=== PATIENT | male | born 1950 | race Caucasian/White ===

== ENCOUNTER 2018-03-17 09:44 | Outpatient (CLI) | payer MEDICARE, BC ==
[~2018-03-17] VITALS: Ht 200.7 cm; Wt 91.8 kg
--- NOTE | ~2018-03-17 | HEMODYNAMI ---
PATIENT:MORGAN BARRIOS MEDICAL RECORD: [id number] : 46 LOCATION:[facility] ADMISSION DATE: 03/17/18 Generatedon:03/17/201812:38 Patient name: MORGAN BARRIOS Patient #: [id number] SSN: : 1950 Date of study: 03/17/2018 Page: Of Hemodynamic Procedure Report Patient Data Patient Demographics Procedure consent was obtained First Name: MORGAN Gender: Male Last Name: SOPHIE Suffix: Jr Jeanette Initial: T : 1950 Patient #: [id number] Age: 68 year(s) Race: Additional ID: [id number] Contact details Address: [place] [address] State: [place] City: [place] Zip code: [address] Past Medical History History of disease Date Diagnosis Comments CAD Allergies: No known allergies Admission Admission Data Admission Date: 03/17/2018 Admission Time: 9:44 Admit Source: Other Procedure Procedure Types Cath Procedure Diagnostic Procedure [facility] w/Coronaries Cardioversion External PCI Procedure Coronary Stent Coronary Stent Initial Procedure Description Procedure Date Procedure Date: 03/17/2018 Procedure Start Time: 12:17 Procedure End Time: 12:36 Procedure Staff Name Function Fran Ha MD Performing Physician Osmin Barker RT Monitor Serena Puga RT Scrub Rommel Simmons MD Additional personnel Giovanna Reyes RN Boat Patcher Plastic Procedure Data Cath Procedure Fluoroscopy Diagnostic fluoroscopy Total fluoroscopy Time: 2.5 time: 2.5 min min Diagnostic fluoroscopy Total fluoroscopy dose: 583 dose: 583 mGy mGy Contrast Material Contrast Material Type Amount (ml) Isovue 300 83 Entry Location Entry Primary Successful Side Size Upsize Upsize Entry Closure Succes sful Closure Location (Fr) 1 (Fr) 2 (Fr) Remarks Device Remarks Femoral Right 5 Fr 6 Fr Exoseal artery Short Estimated blood loss: 10 ml Diagnostic catheters Device Type Used For End Catheter Placement MULTIPACK Pigtail 5 Fr Procedure catheter MULTIPACK JL 4.0 5Fr Procedure catheter MULTIPACK 3DRC 5Fr Procedure catheter DIAGNOSTIC AR 2 MOD 5 Fr Procedure catheter ([id number]) Procedure Complications No complications Procedure Medications Medication Administration Route Dosage Oxygen etCO2 Nasal cannula 2 l/min Lidocaine 2% added to field 20 Heparin Flush Bag added to field 2 bags (1000units/500ml NS) 0.9% NaCl I.V. 100 ml/hr Refer to Anesthesia Notes for Sedation Medications Heparin Bolus I.V. 4000 units Integrilin (Bolus I.V. 8.5 ml 2mg/ml) Plavix P.O. 600 mg Hemodynamics Rest Heart Rate: 85 (bpm) Snapshots Pre Cath Intra NCS Post Cath Vital Signs Time Heart Resp SPO2 etCO2 NIBP (mmHg) Rhythm Pain Sedation Rate (ipm) (%) (mmHg) Status Level (bpm) 11:48:17 77 27 100 19.2 131/98(117) NSR 0 (11) 10(A) , No pain 11:52:53 71 17 98 15.7 124/92(107) NSR 0 (11) 10(A) , No pain 11:57:28 86 18 100 19.4 125/89(112) NSR 0 (11) 10(A) , No pain 12:02:04 81 17 99 24.7 115/87(99) NSR 0 (11) 9(A) , No pain 12:06:39 70 14 100 25.4 118/80(98) NSR 0 (11) 9(A) , No pain 12:11:13 77 16 100 23.2 128/84(102) NSR 0 (11) 9(A) , No pain 12:15:50 92 12 95 14.2 102/78(95) NSR 0 (11) 9(A) , No pain 12:21:03 39 12 99 23.2 103/56(80) NSR 0 (11) 9(A) , No pain 12:25:42 38 14 98 15.7 86/47(65) NSR 0 (11) 9(A) , No pain 12:30:41 38 14 98 0 Measuring NSR 0 (11) 9(A) , No pain 12:31:03 38 12 98 0 81/47(65) NSR 0 (11) 9(A) , No pain 12:31:56 38 13 98 0 81/42(62) NSR 0 (11) 10(A) , No pain 12:36:37 14.9 No Cuff NSR 0 (11) 10(A) , No pain Medications Time Medication Route Dose Verified Delivered Reason Notes Effectiveness by by 11:55:22 Oxygen etCO2 2 Fran Fran for local Nasal l/min Leland Ha MD anesthetic cannula 11:55:49 Lidocaine 2% added 20ml Fran Peters for local to vial Leland Ha MD anesthetic field 11:55:56 Heparin Flush added 2 Fran Peters used for Bag to bags Leland Ha MD procedure (1000units/500ml field NS) 11:56:04 0.9% NaCl I.V. 100 Fran Heredia Per physician ml/hr Leland Reyes RN 12:11:45 Refer to Fran Heredia Anesthesia Notes Leland Reyes RN for Sedation Medications 12:23:12 Heparin Bolus I.V. 4000 Fran Heredia for verif ied units Leland Reyes RN anticoagulation with dr ha 12:24:56 Integrilin I.V. 8.5 Fran Heredia for wased (Bolus 2mg/ml) ml Leland Reyes RN antiplatelet 1.5ml of therapy vial 12:30:27 Plavix P.O. 600 Fran Heredia for mg Leland Reyes RN antiplatelet therapy Procedure Log Time Note 11:15:03 Serena Counts RT(R) sent for patient. Start room use. 11:36:21 Informed consent obtained and on chart 11:36:24 Admit Source: Other 11:38:01 Diagnostic Cath status Elective 11:38:09 Time tracking: Regular hours (M-F 7:00 - 5:00) 11:38:12 Plan of Care:Hemodynamics will remain stable., Cardiac rhythm will remain stable., Comfort level will be maintained., Respiratory function will remain adequate., Patient/ family verbilizes understanding of procedure., Procedure tolerated without complication., Recovers from procedure without complications.. 11:38:16 Patient received from Pre/Post Procedure Room to CCL 1 Alert and oriented. Tansferred to table in Supine position. 11:38:17 Warm blankets applied, and shirley hugger turned on for patient comfort. 11:38:17 Correct patient and procedure confirmed by team. 11:38:18 ECG and BP/O2 sat monitors applied to patient. 11:38:40 Rommel Simmons MD present and monitoring patient for TIVA. 11:47:28 Vital chart was started 11:55:22 Oxygen 2 l/min etCO2 Nasal cannula was administered by Fran Ha MD; for local anesthetic; 11:55:27 Baseline sample Acquired. 11:55:49 Lidocaine 2% 20ml vial added to field was administered by Fran Ha MD; for local anesthetic; 11:55:56 Heparin Flush Bag (1000units/500ml NS) 2 bags added to field was administered by Fran Ha MD; used for procedure; 11:56:03 Rhythm: atrial flutter 11:56:04 0.9% NaCl 100 ml/hr I.V. was administered by Giovanna Reyes RN; Per physician; 11:56:04 Full Disclosure recording started 11:56:20 H&P Date Dictated: 03/12/2018 Within 30 days and on chart., H&P Addendum completed by physician on day of procedure. (MUST COMPLETE FOR ALL OUTPATIENTS). 11:56:23 Pre-procedure instructions explained to patient. 11:56:23 Pre-op teaching completed and patient verbalized understanding. 11:56:24 Family in waiting room. 11:56:25 Patient NPO since Midnight. 11:56:34 Patient allergic to No known allergies 11:56:36 Is the patient allergic to Iodine/contrast media? No. 11:56:37 Is patient on blood thinner?Yes 11:56:41 ACC The patient was administered the following blood thiners within the last 24 hours: Xarelto 11:57:21 Physician arrived 11:57:21 --------ALL STOP TIME OUT------ 11:57:22 Final Timeout: patient, procedure, and site verified with staff and physician. All members of the team are in agreement. 11:57:24 Right groin site verified by team. 11:57:27 Physical assessment completed. ASA score P 3 - A patient with severe systemic disease as per Fran Ha MD. 11:57:30 Sedation plan: TIVA Medication:Propofol 11:57:34 Patient diabetic? No. 11:57:36 Previous problem with sedation/anesthesia? No ? 11:57:38 Snore? Yes 11:57:39 Sleep apnea? No 11:57:40 Deviated septum? No 11:57:40 Opens mouth fully? Yes 11:57:41 Sticks out tongue? Yes 11:57:43 Airway obstruction? No ? 11:57:46 Dentures? No ? 11:57:49 Pre procedure: right dorsailis pedis pulse 2+ Normal; easily identifiable; not easily obliterated 11:57:50 Patient pain scale 0/10 ?. 11:58:03 IV patent on arrival in left forearm with 0.9% NaCl at [facility]. 11:58:11 Lab results completed and on chart. 11:58:55 Right groin area was prepped with chlora-prep and draped in sterile fashion 11:58:56 Alarms reviewed by R. N. 11:58:57 Sharps counted by scrub and verified by R.N. 12:07:52 Zero performed for pressure channel P1 12:08:31 Baseline sample Acquired. 12:11:45 Refer to Anesthesia Notes for Sedation Medications was administered by Giovanna Reyes RN; ; 12:13:33 Quick Combo opened to sterile field. 12:13:34 Procedure started. 12:13:37 Quick combo pads placed on patients chest and back. 12:16:11 Defibrillator synced and charged to 275 Joules. 12:16:16 Shock delivered. 12:16:23 Patient cardioverted to sinus bradycardia. 12:17:05 Local anesthetic to right femoral artery with Lidocaine 2% by Fran aH MD.INITIAL ACCESS ONLY 12:17:15 A 5 Fr sheath was inserted into the Right Femoral artery 12:17:51 Use device set Femoral Dx 12:17:52 ACIST Syringe (30035) opened to sterile field. 12:17:52 Bag Decanter () opened to sterile field. 12:17:53 Medline Cath Pack ([id number]) opened to sterile field. 12:17:54 ACIST Hand Control (71032) opened to sterile field. 12:17:54 ACIST Manifold (42732) opened to sterile field. 12:17:55 DIAGNOSTIC Multipack 5Fr catheter set (ZH8180) opened to sterile field. 12:17:55 Tegaderm 4 x 4 (1626W) opened to sterile field. 12:17:58 SHEATH Prelude 5Fr 0.035 (NQP-0G-15-035) opened to sterile field. 12:17:59 DIAGNOSTIC WIRE .035 260cm J wire (206092) opened to sterile field. 12:18:08 A MULTIPACK Pigtail 5 Fr catheter was advanced over the wire and used for Procedure. 12:18:12 LV angiography performed. 12:18:13 LV gram done using POLLARD 12:18:15 Injector settings: Ml/sec: 10, Volume: 20, 12:18:20 EF : 35 % 12:18:24 Catheter exchanged over wire. 12:18:29 A MULTIPACK JL 4.0 5Fr catheter was advanced over the wire and used for Procedure. 12:18:48 LCA angiography performed. 12:19:46 Catheter exchanged over wire. 12:19:53 A MULTIPACK 3DRC 5Fr catheter was advanced over the wire and used for Procedure. 12:20:32 PATTERSON to LAD angiography performed. 12:20:48 RCA angiography performed. 12:21:18 Catheter exchanged over wire. 12:21:28 A DIAGNOSTIC AR 2 MOD 5 Fr catheter ([id number]) was advanced over the wire and used for Procedure. 12:21:51 CHOICE PT Extra Support 182cm wire ([id number]) opened to sterile field. 12:21:52 INFLATOR Merit BasixCompak (MH8858) opened to sterile field. 12:21:53 SHEATH Prelude 6Fr 0.035 (ZYV-7G-95-035) opened to sterile field. 12:22:22 SVG to Diag angiography performed. 12:22:24 Catheter removed. 12:22:31 Sheath upsized to a 6 Fr Short. 12:23:12 Heparin Bolus 4000 units I.V. was administered by Giovanna Reyes RN; for anticoagulation; verified with dr ha 12:23:35 GUIDE 6FR XBLAD 4.0 SH catheter ([id number]) opened to sterile field. 12:23:46 6 Fr xblad 4 sh guide catheter was inserted over the wire 12:24:56 Integrilin (Bolus 2mg/ml) 8.5 ml I.V. was administered by Giovanna Reyes RN; for antiplatelet therapy; wased 1.5ml of vial 12:24:59 choice pt es wire advanced. 12:25:45 Place stent Inflation Number: 1 A INTEGRITY RX 3.0 x 18 stent ([id number]) was prepped and advanced across the Prox CX. The stent was deployed at 17 LEROY for 0:10 (min:sec). 12::57 Stent catheter was removed intact over wire. 12::57 Wire removed. 12::59 Guide catheter removed. 12:26:04 EXOSEAL 6Fr (EX600) opened to sterile field. 12:26:11 Sheath removed intact; hemostasis achieved with Exoseal to the Right Femoral artery. 12::13 Procedure ended.(Physican Out) 12:: Fluoroscopy time 02.50 minutes. 12:: Flurop Dose total: 583 12:: Fluoroscopy dose: 583 mGy 12:: Contrast amount:Isovue 300 83ml. 12:: Sharps counted by scrub and verified by R.N. 12:: Plavix 600 mg P.O. was administered by Giovanna Reyes RN; for antiplatelet therapy; 12:34:26 Insertion/operative site no bleeding no hematoma. 12:34:28 Post-op/insertion site Right Femoral artery dressed using a 4 x 4 and Tegaderm. 12:34:31 Post right femoral artery:stable, soft, clean and dry 12:34:33 Post Procedure Pulses reassessed and unchanged 12:34:35 Post-procedure physical assessment completed. ASA score P 3 - A patient with severe systemic disease as per Fran Ha MD. 12:34:51 Post procedure rhythm: sinus bradycardia 12:35:06 Estimated blood loss: 10 ml 12:35:07 Post procedure instruction explained to patient.Patient verbalizes understanding. 12:35:08 Patient needs reinforcement of post procedure teaching. 12:35:17 Procedure type changed to Cath procedure, Diagnostic procedure, LHC, LHC w/Coronaries, Cardioversion External, PCI procedure, Coronary Stent, Coronary Stent Initial 12:36:27 Procedure and supply charges have been captured, reviewed, submitted and are correct. 12:36:29 Procedure Complication : No complications 12:36:32 Vital chart was stopped 12:36:33 See physician's report for complete and final results. 12:36:35 Report given to Pre/Post Procedure Room. 12:36:38 Patient transfered to Pre/Post Procedure Room with Stretcher. 12:36:42 Procedure ended. 12:36:42 Full Disclosure recording stopped 12:36:46 End room use (Document Last) Intervention Summary Intervention Notes Time ActionType Lesion and Equipment Action# Pressure Duration Attributes Used 12:25:45 Place stent Prox CX INTEGRITY RX 1 17 00:10 3.0 x 18 stent ([id number]) Device Usage Item Name Manufacture Quantity Catalog Number Hospital Part Current Minimal Lot# / Charge Number Stock Stock Serial# Code Quick Combo Edge Systems 1 [id number] 921454 839785 [id number] 5 ACIST Syringe Acist 1 23395 228259 008024 668546 20 (42357) Medical Systems Inc Bag Decanter Microtek 1 2001S 244871 34013 168245 5 (2001S) Medical Inc. Medline Cath Cardinal 1 [id number] 712740 04764 564914 5 Pack Health ([id number]) ACIST Hand Acist 1 26627 389663 325894 972291 5 Control (71189) Medical Systems Inc ACIST Manifold Acist 1 32210 569919 465845 443778 5 (62291) Medical Systems Inc DIAGNOSTIC Cardinal 1 BY8191 514065 55468 082864 30 Multipack 5Fr Health catheter set (AJ0595) Tegaderm 4 x 4 3M 1 1626W 503325 164531 803056 5 (1626W) SHEATH Prelude Merit 1 CRO-3P-61-035 552866 442183 172708 5 5Fr 0.035 Medical (DWQ-0R-72-035) DIAGNOSTIC WIRE [facility] Leonardo 1 277408 388110 854516 391159 30 .035 260cm J wire (144792) MULTIPACK Cardinal 1 707077 5 Pigtail 5 Fr Health catheter MULTIPACK JL Cardinal 1 559419 5 4.0 5Fr Health catheter MULTIPACK 3DRC Cardinal 1 460468 5 5Fr catheter Health DIAGNOSTIC AR 2 Cardinal 1 [id number] 000673 058431 912534 20 MOD 5 Fr Health catheter (199538W) CHOICE PT Extra Turin 1 [id number] 162680 414129 684874 5 Support 182cm Scientific wire ([id number]) INFLATOR Merit Merit 1 DG9397 562937 833045 923733 15 [facility] Medical (BG5640) SHEATH Prelude Merit 1 UMN-5U-30-35 870965 7730294 732146 5 6Fr 0.035 Medical (IPV-6Q-92-035) GUIDE 6FR XBLAD Cardinal 1 [id number] 370504 2588 679821 3 4.0 catheter Health (91614859) INTEGRITY RX Medtronic 1 [id number] 396592 367008 776629 5 [id number] 3.0 x 18 stent ([id number]) EXOSEAL 6Fr Cardinal 1 EX600 461944 652902 867507 10 (EX600) Health Signature Audit [place] Stage Time Signature Unsigned Intra-Procedure 03/17/2018 Osmin Barker 12:38:03 PM RT(R) Signatures Monitor : Osmin Barker RT Signature : Date : Time : [address] [address]
--- NOTE | ~2018-03-17 | OP ---
PATIENT NAME: MORGAN BARRIOS MEDICAL RECORD: [id number] :46 LOCATION:D.CAT ADMISSION DATE: SURGEON: JOHANNE STEWARD MD DATE OF OPERATION: 03/17/2018 PROCEDURES: 1. DC cardioversion. 2. PTCA stent of left circumflex. 3. Left heart catheterization. 4. Left ventriculogram. 5. Selective coronary angiography. 6. Vein graft angiography. 7. PATTERSON angiography. INDICATION: Atrial fibrillation, angina and coronary artery disease. PROCEDURE PERFORMED: After informed consent was obtained and after a detailed description of risks, benefits as well as alternative therapies, the patient elected to proceed with angiogram and angioplasty. The right femoral area was prepped and draped in normal sterile fashion. Right femoral artery was cannulated via modified Seldinger technique with placement of 6-Serbian sheath. All catheters exchanged through this sheath. FINDINGS: The left ventriculogram was performed in standard 30-degree POLLARD view reveals global hypokinesis throughout all segments. Overall ejection fraction 35%. SELECTIVE CORONARY ANGIOGRAPHY: 1. Left main is with no significant angiographic disease. 2. Left anterior descending is totally occluded. 3. PATTERSON to the LAD is widely patent. Distal LAD is widely patent. 4. Vein graft to the LAD diagonal is patent. Previously placed stent is widely patent. 5. The right coronary artery is totally occluded. This is nongrafted. 6. Left circumflex has previously placed stents. There is 80% and 90% in-stent restenosis. IN PROCESS INSPECTOR STENT OF THE LEFT CIRCUMFLEX: The stent used was a 3.0 x 18 mm Integrity. Result was 0% residual stenosis. OVERALL IMPRESSION: Successful percutaneous transluminal coronary angioplasty stent of the left circumflex going from 80% to 90% in-stent restenosis to 0% residual stenosis. DC cardioversion was performed. Continuous O2 saturation, heart rate, blood pressure monitoring all undertaken, all of which remained stable. IV conscious sedation was per anesthesia. The patient received 1 shock at 275 joules restoring sinus rhythm. OVERALL IMPRESSION: Successful DC cardioversion from atrial fibrillation to sinus rhythm. TRANSINT:[id number] Voice Confirmation ID: [id number] DOCUMENT ID: [id number] OPERATIVE REPORT [id number] MORGAN BARRIOS JOHANNE STEWARD MD at 7992 CC: [id number] DICTATION DATE: 03/17/18 1233 CHIEF ELECTRICIAN: 03/17/18 1248 DEP CLI 03/17/18 [facility] [address] [facility] [address]
[~2018-03-17 09:44] MED LIST: AMITRIPTYLINE H50 MG PO; BAYER CHEWABLE81 MG PO; BETAPACE 120 M120 MG PO; BETAPACE 80 MG80 MG PO; FISH OIL 1,0001 CA1 PO; FISH OIL 1,2001 CAP PO; HYDROCHLOROTHIA25 MG PO; HYDROCODONE-APA1 TAB PO; METOPROLOL TAR100 M1 PO; METOPROLOL TART50 MG PO; PLAVIX75 MG PO; PRAVACHOL20 MG PO; RYTHMOL SR225 MG PO; RYTHMOL225 MG PO; SEROQUEL25 MG PO; STOOL SOFTENER250 MG PO; SYNTHROID112 MCG PO; UROCIT-K10 MEQ PO; XARELTO20 MG PO; ZOLOFT100 MG PO
[2018-03-17] MEDS ORDERED: METOPROLOL TART50 MG PO (10:01)
[2018-03-17] MEDS ORDERED: COZAAR50 MG (10:03)
[2018-03-17] MEDS ORDERED: K-TAB10 MEQ (10:05)
[2018-03-17 10:13] VITALS: BP 120/87; Ht 200.7 cm; Wt 91.8 kg
[2018-03-17 10:26] LABS: BASOPHILS 0.9 % (0-2); EOSINOPHILS 3.2 % (0-7); HEMATOCRIT 39.2 % (42.0-54.0); IMMATURE GRANULOCYTES 0.1 % (0-5); LYMPHOCYTES 31.5 % (15-50); MCH 29.8 pg (26.0-34.0); MCHC 33.2 g/dL (31.0-37.0); MCV 89.9 fL (80.0-100.0); MEAN PLATELET VOLUME 9.7 fL (7.4-10.4); MONOCYTES 6.6 % (2-11); NEUTROPHILS 57.7 % (40-80); RBC 4.36 10x6/uL (4.20-6.10)
[2018-03-17 10:28] LABS: PLATELET COUNT 265 10x3/uL (130-400)
[2018-03-17 10:35] LABS: ANION GAP 9.5 mmol/L (8-16); CALCIUM 8.5 mg/dL (8.5-10.1); CREATININE - SERUM 1.5 mg/dL (0.6-1.3); POTASSIUM - SERUM 4.5 mmol/L (3.5-5.1)
[2018-03-17 10:36] LABS: INR 1.09 (0.85-1.17); PROTIME 13.7 SECONDS (11.6-15.0)
[2018-03-17] MEDS ORDERED: PACERONE200 MG PO (13:11)
[2018-03-17] MEDS ORDERED: PACERONE400 MG PO (13:11)
[2018-03-17] MEDS ORDERED: PLAVIX75 MG (13:16)
== END 2018-03-17 16:33 ==
LOC: D.CATH 09:44
PROVIDERS: Internal Medicine Interventional Cardiology
DX: I48.1 Persistent atrial fibrillation (principal); I25.110 Atherosclerotic heart disease of native coronary artery with unstable angina pectoris

== ENCOUNTER → 2018-07-23 15:53 | Outpatient (CLI) | payer MEDICARE, BC ==
[2018-03-17 10:13] VITALS: BMI 22.8
[~2018-07-23 15:53] MED LIST changes: +COZAAR50 MG; +K-TAB10 MEQ; +PACERONE200 MG PO; +PACERONE400 MG PO; +PLAVIX75 MG
[2018-07-23 17:21] LABS: CREATININE - URINE 141.7 mg/dL (30-125); PRO/CRE RATIO URINE 0.5 mg/g; PROTEIN - URINE 65.2 mg/dL (0.0-11.9)
[2018-07-23 17:42] LABS: ANION GAP 12.6 mmol/L (8-16); CALCIUM 9.3 mg/dL (8.5-10.1); CARBON DIOXIDE 26.9 mmol/L (21.0-32.0); CREATININE - SERUM 1.3 mg/dL (0.6-1.3); POTASSIUM - SERUM 4.5 mmol/L (3.5-5.1)
[2018-07-23 17:43] LABS: APPEARANCE HAZY (CLEAR); COLOR YELLOW (YELLOW)
[2018-07-23 17:45] LABS: BILIRUBIN NEGATIVE (NEGATIVE); GLUCOSE NEGATIVE (NEGATIVE); KETONE NEGATIVE (NEGATIVE); NITRITE NEGATIVE (NEGATIVE); PROTEIN NEGATIVE (NEGATIVE); UROBILINOGEN NORMAL (NORMAL)
[2018-07-23 17:47] LABS: BACTERIA MODERATE /hpf (NONE SEEN); RED CELLS - URINE >50 /hpf (0-5)
== END | disposition home or self-care (01) ==
LOC: D.US 15:53
PROVIDERS: Internal Medicine Nephrology
DX: I10 Essential (primary) hypertension (principal); R80.0 Isolated proteinuria; N20.0 Calculus of kidney; R31.9 Hematuria, unspecified; Z68.23 Body mass index [BMI] 23.0-23.9, adult

== ENCOUNTER 2018-12-02 09:44 | Inpatient (IN) | payer MEDICARE, BC ==
[~2018-12-02] VITALS: Ht 200.7 cm; Wt 92.0 kg
[2018-12-02] VITALS (14 sets, daily range): BP systolic 80–145; BP diastolic 43–76; BMI 23.7
--- NOTE | ~2018-12-02 | OP ---
PATIENT NAME: MORGAN BARRIOS MEDICAL RECORD: [id number] :46 [facility] ADMISSION DATE:12/02/18 SURGEON: ROCCO KNIGHT MD DATE OF OPERATION: 12/03/2018 SURGEON: Rocco Knight MD ANESTHESIA: General, Rommel Simmons MD OPERATION PERFORMED: Insertion of dual chamber pacing system. PREOPERATIVE DIAGNOSES: Sick sinus syndrome, profound bradycardia. POSTOPERATIVE DIAGNOSES: Sick sinus syndrome, profound bradycardia. INDICATION FOR OPERATION: Profound bradycardia. FINDINGS OF THE OPERATION: Pacemaker, Medtronic, model #A2DR01, serial #[id number]. Atrial lead; Medtronic model #4574-43, serial #[id number]. Ventricular lead; Medtronic, model #4074-58, serial #[id number]. ESTIMATED BLOOD LOSS: Less than 3 cc. DESCRIPTION OF PROCEDURE: After informed consent, adequate preoperative medication, and evaluation, the patient was brought to the operating room and placed on the table in supine position. After induction of general anesthesia and application of appropriate monitoring devices, the left chest was prepped and draped in sterile field utilizing Betadine scrub, alcohol, and Betadine solution. Betadine-impregnated drape was also used. Lidocaine 1% was infiltrated in the left subclavicular space. Incision was made and dissection was carried down to the fascia. Hemostasis was maintained with electrocautery. Pacemaker pocket was formed. Subclavian vein was cannulated with introducers and leads were placed in the heart. The leads were felt to be in good position and secured. Leads were then connected to the pulse generator and pacemaker was placed in the pocket. Pacemaker was fired, captured, and sensed appropriately. Pocket was irrigated. Instrument count and sponge count were correct times 2. Pocket was closed in layers utilizing 3-0 Vicryl on deep subcutaneous tissue and 5-0 subcuticular Monocryl on the skin. Sterile dressing was applied. The right temporary pacing wire was then removed under fluoroscopic guidance and pressure held. The patient tolerated the procedure well and was transferred to CV ICU in satisfactory condition. TRANSINT:[id number] Voice Confirmation ID: [id number] DOCUMENT ID: [id number] ROCCO KNIGHT MD CC: [id number] DICTATION DATE: 12/03/18 0937 TOWER SWITCH OPERATOR: 12/03/18 1228 ADM IN [facility] [address] [place] [address]
--- NOTE | ~2018-12-02 | HEMODYNAMI ---
PATIENT:MORGAN BARRIOS MEDICAL RECORD: [id number] : 46 [address] [id number] ADMISSION DATE: 12/02/18 Generatedon:12/02/201813:09 Patient name: MORGAN BARRIOS Patient #: [id number] SSN: : 1950 Date of study: 12/02/2018 Page: Of Hemodynamic Procedure Report Patient Data Patient Demographics Procedure consent was obtained First Name: MORGAN Gender: Male Last Name: SOPHIE Suffix: Jr Reid Initial: T : 1950 Patient #: [id number] Age: 68 year(s) Race: Additional ID: [id number] Contact details Address: [place] [address] State: [place] City: [place] Zip code: [address] Past Medical History History of disease Date Diagnosis Comments CAD Allergies: No known allergies Admission Admission Data Admission Date: 12/02/2018 Admission Time: 9:44 Admit Source: Other Room #: .[facility] Lab Results Lab Result Date: 12/02/2018 Lab Result Time: 11:05 Biochemistry Name Units Result Min Max BUN mg/dl 20 --(----)*- 7 18 Creatinine mg/dl 1.4 --(----)*- 0.6 1.3 CBC Name Units Result Min Max Hematocrit % 42.3 --(*---)-- 42 54 Hemoglobin g/dl 13.9 --(*---)-- 13.5 17.5 Procedure Procedure Types Cath Procedure Diagnostic Procedure LHC LHC w/Coronaries w/Grafts Temporary Pacemaker Cardioversion External Procedure Description Procedure Date Procedure Date: 12/02/2018 Procedure Start Time: 12:23 Procedure End Time: 12:47 Procedure Staff Name Function Giovanna Reyes RN Nurse Jose Duong CRNA Additional personnel Fran Ha MD Performing Physician Osmin Barker RT Monitor Marina Raines RT Hot Metal Charger Procedure Data Cath Procedure Fluoroscopy Diagnostic fluoroscopy Total fluoroscopy Time: 2.8 time: 2.8 min min Diagnostic fluoroscopy Total fluoroscopy dose: 539 dose: 539 mGy mGy Contrast Material Contrast Material Type Amount (ml) Isovue 370 61 Entry Location Entry Primary Successful Side Size Upsize Upsize Entry Closure Succes sful Closure Location (Fr) 1 (Fr) 2 (Fr) Remarks Device Remarks Femoral Right 6 Fr Sheath vein Short sutured in place Femoral Right 5 Fr Exoseal artery Estimated blood loss: 5 ml Diagnostic catheters Device Type Used For End Catheter Placement MULTIPACK Pigtail 5 Fr Procedure catheter MULTIPACK JL 4.0 5Fr Procedure catheter MULTIPACK 3DRC 5Fr Procedure catheter Procedure Complications No complications Procedure Medications Medication Administration Route Dosage Oxygen etCO2 Nasal cannula 2 l/min Lidocaine 2% added to field 20 Heparin Flush Bag added to field 2 bags (1000units/500ml NS) 0.9% NaCl I.V. 100 ml/hr Refer to Anesthesia Notes for Sedation Medications Hemodynamics Rest HGB: 13.9 (g/dl) Heart Rate: 47 (bpm) Snapshots Pre Cath Intra NCS Post Cath Vital Signs Time Heart Resp SPO2 etCO2 NIBP (mmHg) Rhythm Pain Sedation Rate (ipm) (%) (mmHg) Status Level (bpm) 12:08:05 48 16 0 166/86(130) NSR 0 (11) 10(A) , No pain 12:12:31 42 17 0 168/82(132) NSR 0 (11) 10(A) , No pain 12:16:57 42 17 99 29.3 168/84(141) NSR 0 (11) 10(A) , No pain 12:21:15 33 17 100 0 143/81(112) NSR 0 (11) 10(A) , No pain 12:24:05 32 16 100 30.1 142/75(92) NSR 0 (11) 10(A) , No pain 12:28:19 69 17 100 30.1 119/78(93) NSR 0 (11) 10(A) , No pain 12:32:29 69 16 100 34.6 120/78(93) NSR 0 (11) 10(A) , No pain 12:36:39 70 16 100 34.6 113/80(89) NSR 0 (11) 10(A) , No pain 12:40:45 70 16 100 35.3 121/83(98) NSR 0 (11) 10(A) , No pain 12:44:53 70 21 100 34.6 134/85(108) NSR 0 (11) 10(A) , No pain Medications Time Medication Route Dose Verified Delivered Reason Notes Effe ctiveness by by 12:06:11 Oxygen etCO2 2 Fran Heredia used for Nasal l/min Leland Reyes RN procedure cannula 12:06:18 Lidocaine 2% added 20ml Fran Heredia used for to vial Leland Reyes RN procedure field 12:06:34 Heparin Flush added 2 Fran Fran used for Bag to bags Leland Ha MD procedure (1000units/500ml field NS) 12:06:44 0.9% NaCl I.V. 100 Fran Heredia Per ml/hr Leland Reyes RN physician 12:21:44 Refer to Fran Heredia Anesthesia Notes Leland Reyes RN for Sedation Medications Procedure Log Time Note 11:45:27 Informed consent obtained and on chart 11:45:31 Admit Source: Other 11:45:54 Time tracking: Regular hours (M-F 7:00 - 5:00) 11:45:58 Plan of Care:Hemodynamics will remain stable., Cardiac rhythm will remain stable., Comfort level will be maintained., Respiratory function will remain adequate., Patient/ family verbilizes understanding of procedure., Procedure tolerated without complication., Recovers from procedure without complications.. 11:55:44 Giovanna Reyes RN sent for patient. Start room use. 11:55:50 Patient received from Pre/Post Procedure Room to CCL 1 Alert and oriented. Tansferred to table in Supine position. 11:55:51 Warm blankets applied, and shirley hugger turned on for patient comfort. 11:55:52 ECG and BP/O2 sat monitors applied to patient. 11:55:52 Correct patient and procedure confirmed by team. 12:00:07 Jose Duong CRNA present and monitoring patient for TIVA. 12:06:11 Oxygen 2 l/min etCO2 Nasal cannula was administered by Giovanna Reyes RN; used for procedure; 12:06:18 Lidocaine 2% 20ml vial added to field was administered by Giovanna Reyes RN; used for procedure; 12:06:34 Heparin Flush Bag (1000units/500ml NS) 2 bags added to field was administered by Fran Ha MD; used for procedure; 12:06:44 0.9% NaCl 100 ml/hr I.V. was administered by Giovanna Reyes RN; Per physician; 12:06:48 Vital chart was started 12:07:37 Baseline sample Acquired. 12:07:42 Rhythm: atrial flutter 12:07:45 Full Disclosure recording started 12:08:04 H&P Date Dictated: 11/04/2018 Within 30 days and on chart., H&P Addendum completed by physician on day of procedure. (MUST COMPLETE FOR ALL OUTPATIENTS). 12:08:27 Pre-procedure instructions explained to patient. 12:08:29 Pre-op teaching completed and patient verbalized understanding. 12:08:32 Family in waiting room. 12:09:01 Patient NPO since Midnight. 12:09:10 Patient diabetic? No. 12:09:13 Is patient on blood thinner?Yes 12:09:18 ACC The patient was administered the following blood thiners within the last 24 hours: Xarelto 12:09:45 LAST DOSE 11/29/2018 12:10:01 Previous problem with sedation/anesthesia? Yes COMBATIVE 12:10:05 Snore? Yes 12:10:06 Sleep apnea? No 12:10:08 Deviated septum? No 12:10:11 Opens mouth fully? Yes 12:10:12 Sticks out tongue? Yes 12:10:15 Quick Combo opened to sterile field. 12:10:15 Airway obstruction? No ? 12:10:22 Dentures? No ? 12:10:48 Pre procedure: right dorsailis pedis pulse 1+ Palpable, but thready & weak; easily obliterated 12:11:30 Patient pain scale 0/10 ?. 12:11:36 IV patent on arrival in left forearm with 0.9% NaCl at [facility]. 12:18:14 Lab Result : Hemoglobin 13.9 g/dl 12:18:14 Lab Result : Hematocrit 42.3 % 12:18:14 Lab Result : BUN 20 mg/dl 12:18:14 Lab Result : Creatinine 1.4 mg/dl 12:18:30 Lab results completed and on chart. 12:18:32 Right groin area was prepped with chlora-prep and draped in sterile fashion 12:18:33 Sharps counted by scrub and verified by R.N. 12:18:33 Alarms reviewed by Bel N. 12:18:36 Use device set Femoral Dx 12:18:37 Bag Decanter (2002S) opened to sterile field. 12:18:37 ACIST Syringe (79369) opened to sterile field. 12:18:41 Medline Cath Pack ([id number]) opened to sterile field. 12:18:45 ACIST Hand Control (04182) opened to sterile field. 12:18:47 ACIST Manifold (47391) opened to sterile field. 12:18:47 DIAGNOSTIC Multipack 5Fr catheter set (TC4935) opened to sterile field. 12:18:48 SHEATH 5FR [place] (HFG810) opened to sterile field. 12:18:49 DIAGNOSTIC WIRE .035 260cm J wire (940562) opened to sterile field. 12:19:10 --------ALL STOP TIME OUT------ 12:19:10 Physician arrived 12:19:11 Final Timeout: patient, procedure, and site verified with staff and physician. All members of the team are in agreement. 12:19:12 Right groin site verified by team. 12:19:14 Maximum allowable Isovue 300 dose 300ml. Physician notified. (300ml for normal creatinines. For patients with creatinine of 1.7 or higher multiply weight(kg) x 5 divided by creatinine.) 12:19:17 Fire Safety Assessment: A--An alcohol-based skin anteseptic being used preoperatively., C--Open oxygen or nitrous oxide is being used., D--An ESU, laser, or fiber-optic light is being used. 12:19:21 Physical assessment completed. ASA score P 3 - A patient with severe systemic disease as per Fran Ha MD. 12:19:24 Sedation plan: IV Moderate Sedation Medication:Propofol 12:19:27 Procedure started. 12:20:51 Quick combo pads placed on patients chest and back. 12:20:53 Defibrillator synced and charged to 175 Joules. 12:20:54 Shock delivered. 12:20:56 Patient cardioverted to sinus bradycardia. 12:21:44 Refer to Anesthesia Notes for Sedation Medications was administered by Giovanna Reyes RN; ; 12:23:11 Local anesthetic to right femoral artery with Lidocaine 2% by Fran Ha MD.INITIAL ACCESS ONLY 12:23:26 A 6 Fr Short sheath was inserted into the Right Femoral vein 12:23:44 5Fr J Tip Temporary Pacing Catheter ([id number]) opened to sterile field. 12:23:52 SHEATH 6FR [place] (LOD363) opened to sterile field. 12:23:55 A 5 Fr sheath was inserted into the Right Femoral artery 12:26:10 Temporary pacer inserted 12::38 Temporary pacer turned on with the following settings: Rate 70, MA 5, Mode: Asynchronous. 12::48 A MULTIPACK Pigtail 5 Fr catheter was advanced over the wire and used for Procedure. 12::54 LV gram done using POLLARD 12::56 Injector settings: Ml/sec: 10, Volume: 20, 12::57 LV hemodynamics recorded. 12:27:04 EF : 35 % 12:27:07 Catheter exchanged over wire. 12:27:14 A MULTIPACK JL 4.0 5Fr catheter was advanced over the wire and used for Procedure. 12:27:41 LCA angiography performed. 12:28:23 Catheter exchanged over wire. 12::57 A MULTIPACK 3DRC 5Fr catheter was advanced over the wire and used for Procedure. 12:29:00 PATTERSON to LAD angiography performed. 12:30:31 SVG to OM angiography performed. 12:30:47 RCA angiography performed. 12:31:36 Catheter removed. 12:32:06 EXOSEAL 5Fr (EX500) opened to sterile field. 12:32:13 Sheath removed intact; hemostasis achieved with Sheath sutured in place to the Right Femoral vein. 12:32:15 Sheath removed intact; hemostasis achieved with Exoseal to the Right Femoral artery. 12:32:15 Procedure ended.(Physican Out) 12:32:49 2-0 Silk 685H opened to sterile field. 12:34:00 Fluoroscopy time 02.80 minutes. 12:34:04 Flurop Dose total: 539 12:34:04 Fluoroscopy dose: 539 mGy 12:34:25 Contrast amount:Isovue 370 61ml. 12:36:27 Insertion/operative site no bleeding no hematoma. 12:36:30 Post-op/insertion site Right Femoral artery dressed using a 4 x 4 and Tegaderm. 12:36:33 Post right femoral artery:stable, soft, clean and dry 12:38:45 Post Procedure Pulses reassessed and unchanged 12:40:01 Post-procedure physical assessment completed. ASA score P 3 - A patient with severe systemic disease as per Fran Ha MD. 12:40:18 Post procedure rhythm: paced 12:40:25 Estimated blood loss: 5 ml 12:40:47 Patient needs reinforcement of post procedure teaching. 12:40:47 Post procedure instruction explained to patient.Patient verbalizes understanding. 12:41:27 Procedure type changed to Cath procedure, Diagnostic procedure, LHC, LHC w/Coronaries w/Grafts, Temporary Pacemaker, Cardioversion External 12:46:46 Procedure and supply charges have been captured, reviewed, submitted and are correct. 12:46:55 Procedure Complication : No complications 12:47:12 Vital chart was stopped 12:47:12 See physician's report for complete and final results. 12:47:13 Report given to CVICU. 12:47:15 Patient transfered to CVICU with Stretcher. 12:47:17 Full Disclosure recording stopped 12:47:17 Procedure ended. 13:06:26 Temp pacer was disloged. Dr. Dexter rerepositioned. 13:06:36 Temporary pacer turned on with the following settings: Rate 30, MA 3, Mode: Demand. 13:08:[address] and dressed with 4X4's and tegaderm. 13:08:53 Report given to CVICU. 13:09:00 End room use (Document Last) Device Usage Item Name Manufacture Quantity Catalog Hospital Part Current Minima l Lot# / Number Charge Number Stock Stock Serial# Code ACIST Acist 1 57858 [id number] 843365 905209 20 Syringe Medical (68919) Systems Inc Bag Microtek 1 2001S 267424 10876 917834 5 Decanter Medical Inc. () Medline Medline 1 [id number] 775718 27172 188836 5 Cath Pack ([id number]) ACIST Hand Acist 1 71927 093757 778631 027740 5 Control Medical (71096) Systems Inc DIAGNOSTIC Cardinal 1 MT9014 719454 62689 826007 30 Multipack Health 5Fr catheter set (LK7312) ACIST Acist 1 80936 385180 429853 862267 5 Manifold Medical (90659) Systems Inc SHEATH 5FR Terumo 1 SAD552 198039 096311 658386 5 [place] (BNW823) DIAGNOSTIC St Leonardo 1 579463 030892 050629 722365 30 WIRE .035 260cm J wire (943215) 5Fr J Tip Puckett 1 [id number] 241846 41446 456455 2 Temporary Lifesciences Pacing Catheter ([id number]) SHEATH 6FR Terumo 1 HJN907 029148 225945 167147 40 [place] (HGT369) MULTIPACK Cardinal 1 463820 5 Pigtail 5 Health Fr catheter MULTIPACK Cardinal 1 181096 5 JL 4.0 5Fr Health catheter MULTIPACK Cardinal 1 903629 5 3DRC 5Fr Health catheter EXOSEAL 5Fr Cardinal 1 EX500 974140 987408 745591 10 (EX500) Health 2-0 Silk Ethicon 1 685H 986454 11385 812630 5 685H Froont 1 55879-650169 607828 230883 007144 5 Signature Audit [place] Stage Time Signature Unsigned Intra-Procedure 12/02/2018 Osmin Barker RT(R) 12:50:47 PM RT(R) 12/02/2018 1:02:59 PM Intra-Procedure 12/02/2018 Osmin Barker 1:09:46 PM RT(R) Signatures Monitor : Osmin Barker RT Signature : Date : Time : [facility] [address] [place] [id number]
[2018-12-02] MEDS ORDERED: TENORMIN50 MG PO (09:56)
[2018-12-02 10:33] LABS: BASOPHILS 0.7 % (0-2); EOSINOPHILS 2.1 % (0-7); HEMATOCRIT 42.3 % (42.0-54.0); HEMOGLOBIN 13.9 g/dL (13.5-17.5); IMMATURE GRANULOCYTES 0.2 % (0-5); LYMPHOCYTES 25.6 % (15-50); MCH 29.9 pg (26.0-34.0); MCHC 32.9 g/dL (31.0-37.0); MEAN PLATELET VOLUME 9.4 fL (7.4-10.4); MONOCYTES 6.8 % (2-11); NEUTROPHILS 64.6 % (40-80); PLATELET COUNT 212 10x3/uL (130-400); RBC 4.65 10x6/uL (4.20-6.10); RDW 14.5 % (11.5-14.5); WBC 8.2 10x3/uL (4.8-10.8)
[2018-12-02 10:54] LABS: INR 0.99 (0.85-1.17); PROTIME 12.6 SECONDS (11.6-15.0)
[2018-12-02 11:26] LABS: ANION GAP 12.9 mmol/L (8-16); CALCIUM 8.5 mg/dL (8.5-10.1); CARBON DIOXIDE 28.5 mmol/L (21.0-32.0); CREATININE - SERUM 1.4 mg/dL (0.6-1.3); POTASSIUM - SERUM 4.4 mmol/L (3.5-5.1)
--- NOTE | 2018-12-02 13:25 | NUR ---
RECEIVED PT FROM RESHIPPING CLERK AT THIS TIME. TPM INSERTED THROUGH RIGHT FEMORAL VEIN. CATH SITE SITE TO RIGHT GROIN EXOSEALED. DRESSING CDI. INSTRUCTED PT HE MUST LIE FLAT. LEFT FOREARM PIV WITH NS INFUSING AT 50. HR IS 33 NOT PACED. PACEMAKER SET TO 30. PT AWAKE ALERT AND ORIENTED. VSS. WILL CONTINUE TO MONITOR
--- NOTE | 2018-12-02 14:12 | NUR ---
LEAD QA ANALYST NURSE STATED SHE SPOKE TO DR. RUVALCABA'S NURSE [place] ABOUT CONSULT
--- NOTE | 2018-12-02 16:07 | NUR ---
OBTAINED CONSENT FOR PERMANENT PACEMAKER PLACEMENT
[2018-12-02 16:11] LABS: HEMATOCRIT 38.7 % (42.0-54.0); HEMOGLOBIN 12.7 g/dL (13.5-17.5); MCH 29.7 pg (26.0-34.0); MCHC 32.8 g/dL (31.0-37.0); MCV 90.6 fL (80.0-100.0); MEAN PLATELET VOLUME 9.4 fL (7.4-10.4); RBC 4.27 10x6/uL (4.20-6.10); RDW 14.3 % (11.5-14.5); WBC 8.2 10x3/uL (4.8-10.8)
[2018-12-02 16:21] LABS: APTT 30.8 SECONDS (22.8-39.4)
[2018-12-02 16:22] LABS: INR 1.11 (0.85-1.17); PROTIME 13.8 SECONDS (11.6-15.0)
[2018-12-02 16:24] LABS: ANION GAP 9.1 mmol/L (8-16); CALCIUM 8.5 mg/dL (8.5-10.1); CARBON DIOXIDE 29.9 mmol/L (21.0-32.0); CREATININE - SERUM 1.3 mg/dL (0.6-1.3)
--- NOTE | 2018-12-02 18:05 | NUR ---
PT RESTING IN BED C CALL GOODSON IN REACH. VSS
--- NOTE | 2018-12-02 19:08 | MORECARE ---
CASE MANAGEMENT DISCHARGE SUMMARY PATIENT: MORGAN BARRIOS UNIT: [id number] ADM DATE: 12/02/18 AGE: 68 : 48 SEX: M ROOM/BED: [facility] AUTHOR: SANDI GR PHYSICIAN: REFERRING PHYSICIAN: JOHANNE STEWARD MD DATE OF SERVICE: 12/02/18 Discharge Plan Patient Name: MORGAN BARRIOS [facility] [facility] 1950 Planned Disposition: Home Anticipated Discharge Date: Discharge Date: Expected LOS: Initial Reviewer: [email or web address] Initial Review Date: 12/02/2018 Generated: 12/02/18 8:07 pm Patient Name: MORGAN BARRIOS Page 43983 at 1908 All edits/amendments must be made on the electronic document DICTATION DATE: 12/02/181906 SAW FEEDER: JOSE 12/02/181906 RPT#: [id number] DC DATE: STATUS: ADM IN [facility] [address] [place] [address] END OF REPORT
--- NOTE | 2018-12-02 19:14 | MORECARE ---
CASE MANAGEMENT DISCHARGE SUMMARY PATIENT: MORGAN BARRIOS UNIT: [id number] ADM DATE: 12/02/18 AGE: 68 : 48 SEX: M ROOM/BED: [facility] AUTHOR: MAILE,DOC PHYSICIAN: REFERRING PHYSICIAN: JOHANNE STEWARD MD DATE OF SERVICE: 12/02/18 Discharge Plan Patient Name: MORGAN BARRIOS Facility: [facility]:[place] : 1950 Planned Disposition: Home Anticipated Discharge Date: Discharge Date: Expected LOS: Initial Reviewer: [email or web address] Initial Review Date: 12/02/2018 Generated: 12/02/18 8:14 pm DCP- Discharge Planning Updated by [email or web address]: Priyanka Fulton on 12/02/18 6:[address] Patient Name: MORGAN BARRIOS Admission Status: Elective Accout number: [id number] Admission Date: 12-02-2018 : 1950 Admission Diagnosis: Attending: INDIRA STEWARD Current LOS: 1 Anticipated DC Date: Planned Disposition: Home Primary Insurance: MEDICARE A & B Discharge Planning Comments: CM met with patient at bedside after explaining CM role and obtaining verbal consent. Patient lives at home with his Sofy and plans to return there upon discharge. Patient feels this would be a safe discharge. CM discussed availability / needs of home health and medical equipment. Patient denies any discharge needs at this time. Patient states he will have his drive him home upon discharge. CM will continue to follow and assist as needed with discharge planning / needs.. Applications Scientist: Priyanka Fulton DCPIA - Discharge Planning Initial Assessment Updated by [email or web address]: Priyanka Fulton on 12/02/18 7:09 pm * Is the patient Alert and Oriented? Yes * How many steps to enter\exit or inside your home? * PCP DR VALENCIA * [facility] * Preadmission Environment Home with Family * ADLs Independent * Equipment Crutch * List name and contact numbers for known caregivers / representatives who currently or will assist patient after discharge: SOFY BARRIOS - SPOUSE - [phone] * Verbal permission to speak to the caregivers and representatives has been obtained from the patient. Yes * Community resources currently utilized None * Additional services required to return to the preadmission environment? No * Can the patient safely return to the preadmission environment? Yes * Has this patient been hospitalized within the prior 30 days at any hospital? No Last DP export: 12/02/18 6:08 p Patient Name: MORGAN BARRIOS Page [phone] at 1914 All edits/amendments must be made on the electronic document DICTATION DATE: 12/02/181913 AUTOMATIC SPINNING LATHE SETTER: JOSE 12/02/181913 RPT#: [id number] DC DATE: STATUS: ADM IN [facility] [address] [place] [address] END OF REPORT
--- NOTE | 2018-12-02 20:35 | NUR ---
DR.TAUTH COOLEY
--- NOTE | 2018-12-02 20:40 | NUR ---
CALLED CVICU, UPDATE GIVEN, STATED TO KEEP RT GROIN IV PORT CLAMPED WITH HEMOSTATS, TPM WIRES AND SHEATH INTACT, PACEMAKER FUNCTIONING, VSS, PT AWAKE AND ALERT, PARTIAL BATH GIVEN, NEW GOWN AND LINEN, WILL CONTINUE TO MONITOR
[2018-12-03] VITALS (19 sets, daily range): BP systolic 113–171; BP diastolic 50–92; Ht 200.7 cm; Wt 92.0 kg
--- NOTE | 2018-12-03 00:52 | NUR ---
BED ALARM ACTIVATED, WHEN RN ENTERED ROOM, PT HAD CLIMBED OVER BED SIDE AND WAS STANDING UP OUT OF BED, RN ASSISTED PT BACK IN BED AND ATTEMPTED TO REORIENT, PT AWAKE AND ALERT BUT CONTINUES TO BE CONFUSED; PT STATED " I THOUGHT I HEARD BOYS OUTSIDE PLAYING, AND I THOUGHT THE GAME HAD BEEN RAINED OUT, SO I FIGURED I'D GET UP AND GO SEE WHAT WAS GOING ON, CAUSE I LOOKED AT THE CLOCK AND THOUGHT IT WAS DAYTIME." RN PLACED SIGN UNDER CLOCK AND BY BOTH SIDES OF BED THAT SAY " DO NOT GET OUT OF BED! CALL NURSE FOR ASSISTANCE." CLEMENTINE LIGHT WITHIN REACH, SR UP x2, BED IN LOW POSITION AND ALARMS ON AND WORKING, REINFORCED TEACHING AND REVIEWED FALL PRECAUTIONS WITH PT, RIGHT FEMORAL SITE WITH SHEATH AND TPM WIRES INTACT WITH NO S/S OF BLEED, DRSG C/D/I, TPM WORKING AND CONFIRMED ON CM, REPOSITIONED PT FOR COMFORT, VSS, PT VERBALIZES UNDERSTANDING OF FALL PREVENTION AND PT SAFETY. WILL CONTINUE TO MONITOR
--- NOTE | 2018-12-03 02:00 | NUR ---
BED ALARM SOUNDED, PT TRYING TO GET OOB, PT STATED " I HEARD BOYS PLAYING OUTSIDE, I THOUGHT IT WAS TIME TO GET UP TO GO SEE THE DOCTOR" REORIENTED PT, REPOSITIONED BACK IN BED, FALL PREVENTION INTERVENTIONS IN [place]CE, BED LOW WITH ALARM ON, CALL LIGHT IN REACH, VSS, WILL CONTINUE TO MONITOR
--- NOTE | 2018-12-03 03:20 | NUR ---
PT ATTEMPTED TO GET OUT OF BED, BED ALARM SOUNDED, PT CONFUSED BUT ABLE TO BE REORIENTED, REPOSITIONED BACK IN BED, REINFORCED TEACHING AND FALL PROVENTION WITH PT, EXPLAINED SCHEDULE FOR MORNING TO PREP BRFORE SURGERY, PT VERBALIZED UNDERSTANDING, VSS, DRSG'S AND LINES C/D/I, WILL CONTINUE TO MONITOR
--- NOTE | 2018-12-03 05:45 | NUR ---
CALLED, ORDERS GIVEN TO GIVE PRE-OP MEDS, AND GET EKG AND PLACE IN CHART, BATH COMPLETED, PT AWAKE AND ALERT, VSS, WILL CONTINUE TO MONITOR
--- NOTE | 2018-12-03 07:18 | NUR ---
OBTAINED CONSENT FOR ANESTHESIA FOR SURGERY AND CONSENT FOR PACEMAKER PLACEMENT BY DR. TRONCOSO. SURGERY TEAM HERE TO SECOND VP HR ASSESSMENT PATIENT. PT AWAKE AND ALERT WITH VSS.
--- NOTE | 2018-12-03 09:05 | NUR ---
PATIENT IN SURGERY
--- NOTE | 2018-12-03 09:23 | NUR ---
TEMPORARY PACEMAKER REMOVED INTACT BY DR TRONCOSO. PRESSURE HELD.
--- NOTE | 2018-12-03 09:45 | NUR ---
RECEIVED PT FROM SURGERY AT THIS TIME. PT HAS PERMANENT PACE MAKER IMPLANTED IN LEFT CHEST WALL WITH DRESSING CDI. LEFT ARM IN SLING. INSTRUCTED TO KEEP ARM IN SLING. RIGHT GROIN DRESSING OVER PREVIOUS TRANSVENOUS TPM CDI. INSTRUCTED PT TO KEEP LEG STRAIGHT AND REMAIN LAYING FLAT. RIGHT PEDAL PULSE PALPABLE. PT IS CURRENTLY ATRIALLY PACED AT 60 BPM. PT NEEDS FREQUENT REORIENTATION HE DID LAST NIGHT. VSS ON ROOM AIR. WILL CONTINUE TO MONITOR
--- NOTE | 2018-12-03 10:00 | NUR ---
ICE PACK APPLIED TO LEFT CHEST WALL PACE MAKER SITE.
--- NOTE | 2018-12-03 10:12 | NUR ---
IN IN ROOM. VSS. NURSE MONITORING PATIENT
--- NOTE | 2018-12-03 10:40 | NUR ---
DR. STEWARD CAME BY TO SEE PATIENT. STATED HE IS OKAY TO TRANSFER. WILL VERIFY WITH ABA NEXT TIME ROUNDS ARE MADE
--- NOTE | 2018-12-03 11:00 | NUR ---
ASSISTED PT TO VOID IN URINAL. VOIDED 250. PT STILL LYING FLAT. WITH LEFT ARM IN SLING
--- NOTE | 2018-12-03 13:00 | NUR ---
PT STILL NEEDS FREQUENT REORIENTATION. ATTACHED NEW TELEMETRY PROBES AND RESECURED LEFT ARM IN SLING. STARTED IV ANTIBIOTICS PER ORDER. IN ROOM
--- NOTE | 2018-12-03 15:00 | NUR ---
PT VERY DISORIENTED. CONTINUES TO REMOVE MONITORING EQUIPMENT AND ATTEMPTS TO GET OUT OF BED. BED ALARM ON AND MONITORING CLOSELY. VSS.
--- NOTE | 2018-12-03 15:30 | NUR ---
PT ARRIVED TO UNIT VIA BED, HOOKED TO MONITORS, PT BELIEVES WE ARE GOING TO HARVEST HIS ORGANS, EXPLAINED TO PT THIS IS NOT TRUE, PT CALM LYING IN BED,
--- NOTE | 2018-12-03 15:45 | NUR ---
PT UPTO BEDSIDE, URINAL USED, 300CC OF UOP, PT BACK TO BED
--- NOTE | 2018-12-03 17:02 | NUR ---
PT COMBATIVE, KICKING AT STAFF. CALLED DR TRONCOSO AND ALERTED HIM TO BEHAVIOR. PT HAS HISTORY OF CONFUSION POST ANESTHESIA. WANTS PT AT BEDSIDE TO SEE IF WILL HELP CALM HIM AND TO HAVE PRIMARY MEDICINE CONSULTED. CONTACTED AND SHE SAYS SHE LEFT HIS BEDSIDE EARLIER BECAUSE SHE FELT LIKE HER PRESENCE HAS AGGRIVATED HIM AND THAT IS WHY SHE LEFT.
--- NOTE | 2018-12-03 17:25 | NUR ---
TRANSFERRED PT TO ICU ROOM 6 FOR CLOSER OBSERVATION. REPORT GIVEN TO ALONSO ORTIZ.
--- NOTE | 2018-12-03 18:10 | NUR ---
CANDIDO RODRIGUEZN AT BEDSIDE, UPDATE GIVEN, NO NEW ORDERS RECIEVED
--- NOTE | 2018-12-03 18:30 | NUR ---
DR. RASMUSSEN AT BEDSIDE, UPDATE GIVEN, NO NEW ORDERS RECIEVED,
--- NOTE | 2018-12-03 20:00 | NUR ---
PT IS AWAKE AND ALERT. HE IS VERY CONFUSED. HE REORIENTS EASILY BUT HE FORGETS QUICKLY. HE IS CALM AND COOPERATIVE. IV RESITED TO LEFT FOREARM. LEFT ARM IS IN A SLING. LEFT CHEST PPM PLACEMENT WITH DRSG CDI.R GROIN DRSG CDI. PERIPHERAL PULSES PALPABLE.
--- NOTE | 2018-12-03 20:45 | NUR ---
PT IS CONFUSED AND TRYING TO GET OOB. REORIENTED
--- NOTE | 2018-12-03 21:30 | NUR ---
PT IS CONFUSED. UNABLE TO REORIENT
--- NOTE | 2018-12-03 22:40 | NUR ---
PT IS MORE CONFUSED. HE IS NOW ARGUMENTATIVE. HE THINKS HE IS AT HOME. HE IS NO LONGER COOPERATIVE. ATTEMPTING TO KEEP HIM IN THE ROOM. HEART RYTHMN IS 100% PACED. HR 67
[2018-12-04 03:30] VITALS: BP 126/78
--- NOTE | 2018-12-04 04:08 | NUR ---
PT IS OOB AND PULLED MONITOR EQUIP OFF. UNABLE TO REORIENT.
--- NOTE | 2018-12-04 04:28 | NUR ---
PT IS OOB AND GETTING DRESSED. UNABLE TO REORIENT. REFUSING TO WEAR MONITOR EQUIP. HEART MONITOR BRIEFLY ON. HR 65 AND 100% PACED.
--- NOTE | 2018-12-04 04:29 | NUR ---
PT REMAINS CONFUSED AND UNABLE TO REORIENT. STATES THAT HE IS HOME. HE IS GETTING DRESSED. REMINDED FREQUENTLY THAT HE IS IN THE HOSPITAL AND CANNOT LEAVE UNTIL THE DOCTOR RELEASES HIM.
--- NOTE | 2018-12-04 04:53 | NUR ---
PT IS VERY CONFUSED BUT IS CALM. HE IS WALKING AROUND IN THE ROOM. HE STILL THINKS THAT HE IS AT HOME.
--- NOTE | 2018-12-04 05:50 | NUR ---
PT PULLED IV OUT. CATH IS INTACT. PRESSURE HELD TO STOP BLEEDING.
--- NOTE | 2018-12-04 07:10 | NUR ---
PATIENT AWAKE, ALERT AND CONFUSED.ORINETED TO NAME AND ONLY.PATIENT IS CALM, TALKATIVE AND SMILING. PATIENT HAS DRESSED HIMSELF AND NO LEFT ARM SLING IN PLACE. PER REPORT, PATIENT CONTINUES TO REMOVE SLING. RE-ORIENTED PATIENT TO HOSPITAL, SITUATION AND RE-APPLIED SLING. PATIENT IS TOHERWISE STABLE AND VSS. WILL CONTINUE WITH PLAN OF CARE.
[2018-12-04 07:55] VITALS: BP 126/78
--- NOTE | 2018-12-04 08:14 | NUR ---
PACEMAKER TECH IN ROOM. PM CHECKED AND PER TECH WORKING WELL. PATIENT STILL PLEASANTLY CONFUSED. ASSESSMENT COMPLETED. PATIENT DENIES ANY NEEDS OR PAIN. WILL CONTINUE TO MONITOR.
--- NOTE | 2018-12-04 09:50 | NUR ---
DR RASMUSSEN IN ROOM. NO NEW ORDERS RECEIVED.
--- NOTE | 2018-12-04 11:11 | NUR ---
PATIENT REMAINS PLEASANT BUT CONFUSED. PATIENT NEEDS OFTEN REDIRECTION . PATIENT CONTINUES TO ASK ABOUT HIS TRUCK, HIS NEEDING TO BE CALLED AND WANTING TO LEAVE. RE-DIRECTS WITH MINIMAL TO MODERATE INTERVENTION. PATIENT IS OTHERWSE STABLE AND UNCHANGED. WILL CONTINUE TO MONITOR WITH ONE ON ONE SUPERVISION AND CARE.
[2018-12-04 12:10] VITALS: BP 136/80
--- NOTE | 2018-12-04 12:45 | NUR ---
DR STEWARD IN ROOM. NEW ORDER RECIEVED FOR DC. WILL PROCEED. CALLED TO INFORM OF DC. SHE WILL ARRIVE IN APPROX. 90 MINUTES TO AGRONOMIST PATIENT.
--- NOTE | 2018-12-04 13:19 | NUR ---
SPOKE WITH [place] ABOUT PT DISCHARGE, INSTRUCTIONS AND APPOINTMENT DATE GIVEN
--- NOTE | 2018-12-04 15:07 | NUR ---
IN ROOM. WRITTEN AND VERBAL DETAILED DISCHARGE INSTRUCTIONS GIVEN TO AND PATIENT. BOTH VERBALIZED UNDERSTANDING AND SIGNED DC INSTRUCTIONS. PATIENT IS STABLE , UNCHANGED AND DENIES ANY PAIN OR NEEDS. PATIENT IS DC HOME VIA WC TO FRONT DOOR AND PRIVATE VEHICLE DRIVEN BY .
--- NOTE | 2018-12-05 09:40 | OP ---
PATIENT NAME: MORGAN BARRIOS MEDICAL RECORD: [id number] :46 LOCATION:D.[facility] D.2306 ADMISSION DATE:12/02/18 SURGEON: JOHANNE STEWARD MD DATE OF OPERATION: 12/02/2018 PROCEDURES: 1. DC cardioversion. 2. Left heart catheterization. 3. Selective coronary angiography. 4. Left ventriculogram. 5. PATTERSON angiography. 6. Vein graft angiography. INDICATIONS: Angina, coronary artery disease, bradycardia, and atrial flutter. IV conscious sedation was per anesthesia. Continuous heart rate, O2 saturation, and blood pressure monitoring all undertaken, all of which remained stable. He received one shock that restored sinus rhythm; however, there was sinus bradycardia in 20s and 30s. Temporary pacemaker was placed through a femoral approach and pacing was undertaken. Left ventriculogram was performed in standard 30-degree POLLARD view, reveals global hypokinesis throughout all segments. Ejection fraction 30% to 35%. SELECTIVE CORONARY ANGIOGRAPHY: 1. Left main has no significant angiographic disease. 2. Left anterior descending has a non-grafted LAD diagonal that has 80% to 90% stenosis at the ostium. The LAD is totally occluded. 3. PATTERSON to the distal LAD is patent. Distal LAD is patent. 4. Left circumflex has a previously placed stent in the mid vessel with questionable in-stent restenosis. The first obtuse marginal is totally occluded. Vein graft to the first obtuse marginal is patent; however, very ectatic. There is 80% to 90% stenosis in the mid shaft of this obtuse marginal. 5. Right coronary is totally occluded and does not appear to be grafted. OVERALL IMPRESSION: Severe bradycardia after cardioversion. Most likely, he will need pacemaker placement. At this time, we will hold off on coronary intervention due to the fact of anticoagulation during the pacemaker procedure. We will proceed with coronary intervention after pacemaker procedure if symptomatology persists. TRANSINT:[id number] Voice Confirmation ID: [id number] DOCUMENT ID: [id number] JOHANNE STEWARD MD at 0940 CC: [id number] DICTATION DATE: 12/02/18 1237 SUPPLY COORDINATOR: 12/02/18 1723 DIS IN 12/04/18 [place] [address]
--- NOTE | 2018-12-05 09:40 | DS ---
PATIENT:MORGAN STALLWORTH :46 MEDICAL RECORD: [id number] DISCHARGE SUMMARY ADMISSION DATE: 12/02/18 DISCHARGE DATE: 12/04/18 DIAGNOSES: 1. Bradycardia. 2. Status post pacemaker. 3. Coronary artery disease. 4. Hypertension. 5. Paroxysmal atrial fibrillation. HOSPITAL COURSE: Mr. Stallworth presented with atrial fibrillation, underwent DC cardioversion with resulting sinus bradycardia in the 20s and 30s, underwent permanent pacemaker placement, stayed 1 more day secondary to confusion from the anesthesia. The confusion cleared. He was discharged home in stable condition in sinus rhythm, paced. Will follow up with [facility] in 1 month. TRANSINT:[id number] Voice Confirmation ID: [id number] DOCUMENT ID: [id number] JOHANNE STEWARD MD at 0940 CC: [id number] DICTATION DATE: 12/04/18 1257 COOLING ROOM ATTENDANT: 12/05/18 0159 DIS IN 12/04/18 [id number] [place] [address]
--- NOTE | 2018-12-05 14:10 | MORECARE ---
CASE MANAGEMENT DISCHARGE SUMMARY PATIENT: MORGAN BARRIOS UNIT: [id number] ADM DATE: 12/02/18 AGE: 68 : [birth year] SEX: M ROOM/BED: D.2306 AUTHOR: MAILE,DOC PHYSICIAN: REFERRING PHYSICIAN: JOHANNE STEWARD MD DATE OF SERVICE: 12/05/18 Discharge Plan Patient Name: MORGAN BARRIOS Facility: [facility]:[place] : 1950 Planned Disposition: Home Anticipated Discharge Date: Discharge Date: 12/04/2018 Expected LOS: Initial Reviewer: [email or web address] Initial Review Date: 12/02/2018 Generated: 12/05/18 3:10 pm DCP- Discharge Planning Updated by [email or web address]: Priyanka Fulton on 12/02/18 6:[address] Patient Name: MORGAN BARRIOS Admission Status: Elective Accout number: [id number] Admission Date: 12-02-2018 : 1950 Admission Diagnosis: Attending: INDIRA STEWARD Current LOS: 1 Anticipated DC Date: Planned Disposition: Home Primary Insurance: MEDICARE A & B Discharge Planning Comments: CM met with patient at bedside after explaining CM role and obtaining verbal consent. Patient lives at home with his Sofy and plans to return there upon discharge. Patient feels this would be a safe discharge. CM discussed availability / needs of home health and medical equipment. Patient denies any discharge needs at this time. Patient states he will have his drive him home upon discharge. CM will continue to follow and assist as needed with discharge planning / needs.. Advertising Space Clerk: Priyanka Fulton DCPIA - Discharge Planning Initial Assessment Updated by [email or web address]: Priyanka Fulton on 12/02/18 7:09 pm * Is the patient Alert and Oriented? Yes * How many steps to enter\exit or inside your home? * PCP DR VALENCIA * [facility] * Preadmission Environment Home with Family * ADLs Independent * Equipment Crutch * List name and contact numbers for known caregivers / representatives who currently or will assist patient after discharge: SOFY BARRIOS - SPOUSE - [phone] * Verbal permission to speak to the caregivers and representatives has been obtained from the patient. Yes * Community resources currently utilized None * Additional services required to return to the preadmission environment? No * Can the patient safely return to the preadmission environment? Yes * Has this patient been hospitalized within the prior 30 days at any hospital? No Last DP export: 12/02/18 6:14 p Patient Name: MORGAN BARRIOS Page [id number] at 1410 All edits/amendments must be made on the electronic document DICTATION DATE: 12/05/181408 CHARGING OPERATOR: JOSE 12/05/181408 RPT#: [id number] DC DATE:12/04/18 STATUS: DIS IN [facility] [address] [place] [address] END OF REPORT
== END 2018-12-04 15:10 | disposition home or self-care (01) | DRG 244 ==
LOC: D.CATH 09:44 → D.CVICU 09:44 → D.CATH 12:00 → D.CVICU 12:52 → D.CATH 18:43 → D.ICU 18:44 → D.CVICU 18:44 → D.ICU 12-03 17:47
PROVIDERS: Internal Medicine Cardiovascular Disease; ADMIT Internal Medicine Interventional Cardiology; ATTEND Internal Medicine Interventional Cardiology
PROC: 02H73JZ Insertion of Pacemaker Lead into Left Atrium, Percutaneous Approach (ICD-10-PCS; 2018-12-02)
PROC: B2151ZZ Fluoroscopy of Left Heart using Low Osmolar Contrast (ICD-10-PCS; 2018-12-02)
PROC: 4A023N7 Measurement of Cardiac Sampling and Pressure, Left Heart, Percutaneous Approach (ICD-10-PCS; 2018-12-02)
PROC: B2181ZZ Fluoroscopy of Left Internal Mammary Bypass Graft using Low Osmolar Contrast (ICD-10-PCS; principal; 2018-12-02 12:00)
PROC: 0JH606Z Insertion of Pacemaker, Dual Chamber into Chest Subcutaneous Tissue and Fascia, Open Approach (ICD-10-PCS; 2018-12-02 12:00)
PROC: 02HL3JZ Insertion of Pacemaker Lead into Left Ventricle, Percutaneous Approach (ICD-10-PCS; 2018-12-02 12:00)
DX: I49.5 Sick sinus syndrome (principal); F17.200 Nicotine dependence, unspecified, uncomplicated; R00.1 Bradycardia, unspecified; I10 Essential (primary) hypertension; Z95.1 Presence of aortocoronary bypass graft; R41.0 Disorientation, unspecified; I25.119 Atherosclerotic heart disease of native coronary artery with unspecified angina pectoris; I48.0 Paroxysmal atrial fibrillation

== ENCOUNTER 2019-01-02 08:32 | Outpatient (CLI) | payer MEDICARE, BC ==
[~2019-01-02] VITALS: Ht 200.7 cm; Wt 90.9 kg
--- NOTE | ~2019-01-02 | HEMODYNAMI ---
PATIENT:MORGAN BARRIOS MEDICAL RECORD: [id number] : 46 [facility] DATE: 01/02/19 Generatedon:01/02/201913:08 Patient name: MORGAN BARRIOS Patient #: [id number] SSN: : 1950 Date of study: 01/02/2019 Page: Of Hemodynamic Procedure Report Patient Data Patient Demographics Procedure consent was obtained First Name: MORGAN Gender: Male Last Name: SOPHIE Suffix: Jr Jeanette Initial: T : 1950 Patient #: [id number] Age: 68 year(s) Race: Additional ID: [id number] Contact details Address: [address] [address] State: [place] City: [place] Zip code: [address] Past Medical History History of disease Date Diagnosis Comments CAD Allergies: No known allergies Admission Admission Data Admission Date: 01/02/2019 Admission Time: 8:32 Lab Results Lab Result Date: 01/02/2019 Lab Result Time: 0:00 Biochemistry Name Units Result Min Max BUN mg/dl 29 --(----)-* 7 18 Creatinine mg/dl 1.4 --(----)*- 0.6 1.3 eGFR ml/min 53 *-(----)-- 90 120 NONAFRICAN CBC Name Units Result Min Max Hemoglobin g/dl 13.2 -*(----)-- 13.5 17.5 Procedure Procedure Types Cath Procedure PCI Procedure Coronary Stent Coronary Stent Initial Procedure Description Procedure Date Procedure Date: 01/02/2019 Procedure Start Time: 12:54 Procedure End Time: 13:07 Procedure Staff Name Function Fran Ha MD Performing Physician Felix Barrios RT Monitor Arnold Rebolledo RN Nurse Alicia Mcnamara RT Scrub Procedure Data Cath Procedure Fluoroscopy Diagnostic fluoroscopy Total fluoroscopy Time: 1.5 time: 1.5 min min Diagnostic fluoroscopy Total fluoroscopy dose: 332 dose: 332 mGy mGy Contrast Material Contrast Material Type Amount (ml) Isovue 300 44 Entry Location Entry Primary Successful Side Size Upsize Upsize Entry Closure Succes sful Closure Location (Fr) 1 (Fr) 2 (Fr) Remarks Device Remarks Femoral Right 6 Fr Exoseal artery Short Estimated blood loss: 10 ml Procedure Medications Medication Administration Route Dosage Oxygen etCO2 Nasal cannula 2 l/min Heparin Flush Bag added to field 2 bags (1000units/500ml NS) 0.9% NaCl I.V. 100 ml/hr Lidocaine 2% added to field 20 Fentanyl I.V. 100 mcg Fentanyl I.V. 100 mcg Heparin Bolus I.V. 4000 units Integrilin (Bolus I.V. 8.5 ml 2mg/ml) Integrilin (Bolus wasted 1.5 ml 2mg/ml) Plavix P.O. 600 mg Hemodynamics Rest HGB: 13.2 (g/dl) Heart Rate: 60 (bpm) Snapshots Pre Cath Intra NCS Post Cath Vital Signs Time Heart Resp SPO2 etCO2 NIBP (mmHg) Rhythm Pain Sedation Rate (ipm) (%) (mmHg) Status Level (bpm) 12:39:39 59 16 100 31.4 176/99(138) NSR 0 (11) 10(A) , No pain 12:43:38 59 16 100 34.4 174/99(144) NSR 0 (11) 10(A) , No pain 12:49:39 59 17 100 37.4 158/91(106) NSR 0 (11) 10(A) , No pain 12:53:37 59 16 100 42.6 159/93(131) NSR 0 (11) 9(A) , No pain 12:57:34 59 16 100 38.9 161/98(131) NSR 0 (11) 9(A) , No pain 13:01:32 59 16 100 35.1 165/108(111) NSR 0 (11) 9(A) , No pain 13:06:02 59 15 100 40.4 168/95(130) NSR 0 (11) 10(A) , No pain Medications Time Medication Route Dose Verified Delivered Reason Notes Effectiveness by by 12:37:00 Oxygen etCO2 2 Fran Barrett Per physician Nasal l/min Leland Rebolledo RN cannula 12:38:34 Heparin Flush added 2 Fran Barrett used for Bag to bags Leland Rebolledo vessel scrapper (1000units/500ml field NS) 12:38:43 0.9% NaCl I.V. 100 Fran Barrett Per physician ml/hr Leland Rebolledo RN 12:38:52 Lidocaine 2% added 20ml Fran Barrett used for to vial Leland Rebolledo RN procedure field 12:51:08 Fentanyl I.V. 100 Fran Arnold for sedation mcg Leland Rebolledo RN 12:53:55 Fentanyl I.V. 100 Fran Barrett for sedation mcg Leland Rebolledo RN 12:54:11 Heparin Bolus I.V. 4000 Fran Wolffy for units Leland Rebolledo RN anticoagulation 12:54:26 Integrilin I.V. 8.5 Fran Barrett for (Bolus 2mg/ml) ml Leland Rebolledo RN antiplatelet therapy 12:54:33 Integrilin wasted 1.5 Fran Barrett for (Bolus 2mg/ml) ml Leland Rebolledo RN antiplatelet therapy 13:01:37 Plavix P.O. 600 Fran Wolffy for mg Leland Rebolledo RN antiplatelet therapy Procedure Log Time Note 12:14:36 Informed consent obtained and on chart 12:14:40 Diagnostic Cath Status : Elective 12:15:49 Felix Barrios RT(R) (CV) sent for patient. Start room use. 12:15:52 Time tracking: Regular hours (M-F 7:00 - 5:00) 12:15:58 Plan of Care:Hemodynamics will remain stable., Cardiac rhythm will remain stable., Comfort level will be maintained., Respiratory function will remain adequate., Patient/ family verbilizes understanding of procedure., Procedure tolerated without complication., Recovers from procedure without complications.. 12:16:35 Use device set Femoral Dx 12:16:37 ACIST Syringe (90051) opened to sterile field. 12:16:38 Bag Decanter () opened to sterile field. 12:16:40 Medline Cath Pack ([id number]) opened to sterile field. 12:16:42 ACIST Hand Control (42232) opened to sterile field. 12:16:43 ACIST Manifold (43007) opened to sterile field. 12:17:01 Tegaderm 4 x 4 (1626W) opened to sterile field. 12:17:05 EMERALD Guide Wire (820-167) opened to sterile field. 12:20:18 SHEATH 6FR [place] (OEF220) opened to sterile field. 12::53 Lab Result : BUN 29 mg/dl 12::53 Lab Result : Creatinine 1.4 mg/dl 12::53 Lab Result : eGFR NONAFRICAN 53 ml/min 12::53 Lab Result : Hemoglobin 13.2 g/dl 12::57 Lab results completed and on chart. 12:26:33 Patient received from Pre/Post Procedure Room to CCL 2 Alert and oriented. Tansferred to table in Supine position. 12:26:46 Warm blankets applied, and shirley hugger turned on for patient comfort. 12:26:47 Correct patient and procedure confirmed by team. 12:37:00 Oxygen 2 l/min etCO2 Nasal cannula was administered by Arnold Rebolledo RN; Per physician; 12:38:34 Heparin Flush Bag (1000units/500ml NS) 2 bags added to field was administered by Arnold Rebolledo RN; used for procedure; 12:38:43 0.9% NaCl 100 ml/hr I.V. was administered by Arnold Rebolledo RN; Per physician; 12:38:48 ECG and BP/O2 sat monitors applied to patient. 12:38:49 Vital chart was started 12:38:52 Lidocaine 2% 20ml vial added to field was administered by Arnold Rebolledo RN; used for procedure; 12:38:55 Baseline sample Acquired. 12:38:59 Rhythm: sinus bradycardia 12:39:01 Full Disclosure recording started 12:40:17 H&P Date Dictated: 12/29/2018 Within 30 days and on chart., H&P Addendum completed by physician on day of procedure. (MUST COMPLETE FOR ALL OUTPATIENTS). 12:41:26 Pre-procedure instructions explained to patient. 12:41:28 Pre-op teaching completed and patient verbalized understanding. 12:41:32 Family in waiting room. 12:41:35 Patient NPO since Midnight. 12:41:45 Is the patient allergic to Iodine/contrast media? No. 12:41:48 Is patient on blood thinner?Yes 12:42:39 Patient diabetic? No. 12:42:57 ACC The patient was administered the following blood thiners within the last 24 hours: ACCPlavix 12:43:28 LAST DOSE XARELTO 12/30/2018 12:43:48 ----Pre-sedation anethsthesia assessment.---- 12:44:04 Previous problem with sedation/anesthesia? No ? 12:44:06 Snore? Yes 12:44:07 Sleep apnea? No 12:44:09 Deviated septum? No 12:45:19 Opens mouth fully? Yes 12:45:22 Sticks out tongue? Yes 12:45:25 Airway obstruction? No ? 12:45:32 Dentures? No ? 12:45:37 Pre procedure: right posterior tibial pulse 2+ Normal; easily identifiable; not easily obliterated 12:45:42 Patient pain scale 0/10 ?. 12:45:56 IV patent on arrival in left hand with 0.9% NaCl at [facility]. 12:46:07 Right groin area was prepped with chlora-prep and draped in sterile fashion 12:46:14 Alarms reviewed by R. N. 12:49:58 Sharps counted by scrub and verified by R.N. 12:49:59 Physician arrived 12:50:00 --------ALL STOP TIME OUT------ 12:50:00 Final Timeout: patient, procedure, and site verified with staff and physician. All members of the team are in agreement. 12:50:10 Right groin site verified by team. 12:50:16 Fire Safety Assessment: A--An alcohol-based skin anteseptic being used preoperatively., C--Open oxygen or nitrous oxide is being used., D--An ESU, laser, or fiber-optic light is being used. 12:50:22 Physical assessment completed. ASA score P 2 - A patient with mild systemic disease as per Fran Ha MD. 12:50:32 3a) 45-59 Moderately reduced kidney function. 12:51:03 Maximum allowable contrast does (3.7 X eGFR X 0.75)147 ml. 12:51:07 Sedation plan: IV Moderate Sedation Medication:Versed, Fentanyl 12:51:08 Fentanyl 100 mcg I.V. was administered by Arnold Rebolledo RN; for sedation; 12:51:39 GUIDE 6FR XBLAD 4.0 SH catheter ([id number]) opened to sterile field. 12:53:55 Fentanyl 100 mcg I.V. was administered by Arnold Rebolledo RN; for sedation; 12:54:11 Heparin Bolus 4000 units I.V. was administered by Arnold Rebolledo RN; for anticoagulation; 12:54:26 Integrilin (Bolus 2mg/ml) 8.5 ml I.V. was administered by Arnold Rebolledo RN; for antiplatelet therapy; 12:54:30 CHOICE PT Extra Support 182cm wire ([id number]) opened to sterile field. 12:54:31 INFLATOR Merit BasixCompak (SU2192) opened to sterile field. 12:54:31 GUIDE 6FR XBLAD 4.0 SH catheter ([id number]) opened to sterile field. 12:54:33 Integrilin (Bolus 2mg/ml) 1.5 ml wasted was administered by Arnold Rebolledo RN; for antiplatelet therapy; 12:54:42 Procedure started. 12:54:46 Local anesthetic to right femoral artery with Lidocaine 2% by Fran Ha MD.INITIAL ACCESS ONLY 12:54:58 A 6 Fr Short sheath was inserted into the Right Femoral artery 12:55:21 6 Fr XBLAD 4 SH guide catheter was inserted over the wire 12:55:36 CHOICE wire advanced. 12:55:38 Wire advanced across lesion. 12:56:25 Place stent Inflation Number: 1 A COBRA RX 3.0 X 30 Stent was prepped and advanced across the Mid CX 90. The stent was deployed at 17 LEROY for 0:10 (min:sec) 0. 12:56:41 Stent catheter was removed intact over wire. 12:56:42 Wire removed. 12:56:43 Guide catheter removed. 12:58:17 EXOSEAL 6Fr (EX600) opened to sterile field. 12:58:34 Sheath removed intact; hemostasis achieved with Exoseal to the Right Femoral artery. 12:58:36 Procedure ended.(Physican Out) 12:59:37 Fluoroscopy time 01.50 minutes. 12:59:42 Fluoroscopy dose: 332 mGy 12:59:42 Flurop Dose total: 332 13:00:11 Contrast amount:Isovue 300 44ml. 13:00:14 Sharps counted by scrub and verified by R.N. 13:01:37 Plavix 600 mg P.O. was administered by Arnold Rebolledo RN; for antiplatelet therapy; 13:02:25 Procedure type changed to Cath procedure, PCI procedure, Coronary Stent, Coronary Stent Initial 13:05:53 Insertion/operative site no bleeding no hematoma. 13:05:57 Post-op/insertion site Right Femoral artery dressed using a 4 x 4 and Tegaderm. 13:06:25 Post right femoral artery:stable 13:06:31 Post Procedure Pulses reassessed and unchanged 13:06:35 Post-procedure physical assessment completed. ASA score P 2 - A patient with mild systemic disease as per Fran Ha MD. 13:06:52 Post procedure rhythm: sinus bradycardia 13:06:56 Estimated blood loss: 10 ml 13:06:59 Post procedure instruction explained to patient.Patient verbalizes understanding. 13:06:59 Patient needs reinforcement of post procedure teaching. 13:07:00 Procedure and supply charges have been captured, reviewed, submitted and are correct. 13:07:07 Vital chart was stopped 13:07:09 See physician's report for complete and final results. 13:07:10 Report given to Pre/Post Procedure Room. 13:07:13 Patient transfered to Pre/Post Procedure Room with Stretcher. 13:07:20 Procedure ended. 13:07:20 Full Disclosure recording stopped 13:07:56 End room use (Document Last) Intervention Summary Intervention Notes Time ActionType Lesion and Equipment Action# Pressure Duration Attributes Used 12:56:25 Place stent Mid CX COBRA RX 1 17 00:10 3.0 X 30 Stent Device Usage Item Name Manufacture Quantity Catalog Number Hospital Part Current Minimal Lot# / Charge Number Stock Stock Serial# Code ACIST Syringe Acist 1 58466 600649 984838 273921 20 (73716) Medical Systems Inc Bag Decanter Microtek 1 2001S 073487 77495 722395 5 (2001S) Medical Inc. Medline Cath Medline 1 [id number] 450396 94492 097997 5 Pack ([id number]) ACIST Hand Acist 1 59477 233237 426358 024322 5 Control Medical (09082) Systems Inc ACIST Manifold Acist 1 16390 828980 192992 245283 5 (89196) Medical Systems Inc Tegaderm 4 x 4 3M 1 1626W 081098 656705 624212 5 (1626W) MAYNOR Guide Cardinal 1 678-728 114151 614808 913313 5 Wire (502-363) Health SHEATH 6FR Terumo 1 INP442 279746 794045 798953 40 [place] (DLX419) GUIDE 6FR Cardinal 2 [id number] 090866 4800 299633 3 XBLAD 4.0 SH Health catheter (05123750) CHOICE PT [place] 1 [id number] 709542 123689 471904 5 Extra Support Scientific 182cm wire ([id number]) INFLATOR Merit Merit 1 IM6254 128793 920470 071367 15 Powa TechnologiesriLe Cicogne Medical (NM3465) COBRA RX 3.0 X Celonova 1 413450 [id number] 9840202 7 3 [id number] 30 stent Biosciences () EXOSEAL 6Fr Cardinal 1 EX600 800798 649804 008950 10 (EX600) Health Signature Audit Mercedes Stage Time Signature Unsigned Intra-Procedure 01/02/2019 Felix Barrios 1:08:15 PM RT(R) (CV) Signatures Monitor : Felix Barrios RT Signature : Date : Time : [address] [place] [address]
[~2019-01-02 08:32] MED LIST changes: +TENORMIN50 MG PO
[2019-01-02 08:58] VITALS: BP 137/79; Ht 200.7 cm; Wt 90.9 kg
[2019-01-02 09:23] LABS: BASOPHILS 0.2 % (0-2); EOSINOPHILS 2.7 % (0-7); HEMATOCRIT 39.8 % (42.0-54.0); HEMOGLOBIN 13.2 g/dL (13.5-17.5); IMMATURE GRANULOCYTES 0.2 % (0-5); LYMPHOCYTES 23.5 % (15-50); MCH 29.7 pg (26.0-34.0); MCHC 33.2 g/dL (31.0-37.0); MCV 89.6 fL (80.0-100.0); MEAN PLATELET VOLUME 9.2 fL (7.4-10.4); MONOCYTES 12.3 % (2-11); NEUTROPHILS 61.1 % (40-80); PLATELET COUNT 170 10x3/uL (130-400); RBC 4.44 10x6/uL (4.20-6.10); RDW 14.1 % (11.5-14.5); WBC 5.3 10x3/uL (4.8-10.8)
[2019-01-02 09:29] LABS: ANION GAP 12.2 mmol/L (8-16); CALCIUM 8.6 mg/dL (8.5-10.1); CARBON DIOXIDE 28.1 mmol/L (21.0-32.0); CREATININE - SERUM 1.4 mg/dL (0.6-1.3); POTASSIUM - SERUM 4.3 mmol/L (3.5-5.1)
--- NOTE | 2019-01-02 13:17 | NUR ---
PT ARRIVED BY BED. PLACED ON MONITORS. ASSESSMENT COMPLETED. FAMILY AT BEDSIDE.
[2019-01-02] MEDS ORDERED: PLAVIX75 MG PO (13:24)
--- NOTE | 2019-01-02 13:34 | NUR ---
RIGHT GROIN DRESSING C/D/I. NO S/S OF HEMATOMA NOTED. VSS. FAMILY AT BEDSIDE. CALL LIGHT WITHIN REACH.
--- NOTE | 2019-01-02 14:00 | NUR ---
RIGHT GROIN DRESSING C/D/I. NO S/S OF HEMATOMA NOTED. VSS.
--- NOTE | 2019-01-02 14:30 | NUR ---
RIGHT GROIN DRESSING C/D/I. NO S/S OF HEMATOMA NOTED. VSS. NO NEEDS AT THIS TIME. CALL LIGHT WITHIN REACH.
--- NOTE | 2019-01-02 15:00 | NUR ---
PT RESTING COMFORTABLY. VSS. RIGHT GROIN DRESSING C/D/I. NO S/S OF HEMATOMA NOTED. CALL LIGHT WITHIN REACH.
--- NOTE | 2019-01-02 15:30 | NUR ---
RIGHT GROIN DRESSING C/D/I. NO S/S OF HEMATOMA NOTED. VSS. CALL LIGHT WITHIN REACH.
--- NOTE | 2019-01-02 16:00 | NUR ---
PT'S HEAD OF BED INC TO 30 DEGREES. TOLERATED WELL. RIGHT GROIN DRESSING C/D/I. NO S/S OF HEMATOMA NOTED. VSS. SET UP WITH [employer] AND [employer] TRAY. DENIES NAUSEA.
--- NOTE | 2019-01-02 16:32 | NUR ---
RIGHT GROIN DRESSING C/D/I. VSS. NO S/S OF HEMATOMA NOTED. LEFT ARM PIV D/C'D WITH CATH TIP INTACT. PT TOLERATED WELL. PT UP AND DRESSED SELF. AMUBLATED TO RESTROOM WITH ASSIST. VOIDED WITHOUT DIFFICULTY.
--- NOTE | 2019-01-02 16:45 | NUR ---
DISCUSSED DISCHARGE INSTRUCTIONS WITH PT AND PT'S FAMILY. THEY VOICED UNDERSTANDING. RIGHT GROIN DRESSING C/D/I. NO S/S OF HEMATOMA NOTED.
--- NOTE | 2019-01-05 18:38 | OP ---
PATIENT NAME: MORGAN BARRIOS MEDICAL RECORD: [id number] :46 LOCATION:D.CAT ADMISSION DATE: SURGEON: JOHANNE STEWARD MD DATE OF OPERATION: 01/02/2019 PROCEDURES: 1. PTCA stent left circumflex. 2. Selective coronary angiography. INDICATION: Angina and coronary artery disease. PROCEDURE IN DETAIL: After informed consent was obtained and after a detailed description of risks, benefits as well as alternative therapies, the patient elected to proceed with angiogram and angioplasty. The right femoral area was prepped and draped in normal sterile fashion. Right femoral artery was cannulated via modified Seldinger technique with placement of 6-Pashto sheath. All catheters exchanged through this sheath. FINDINGS: The left circumflex has 90% in-stent restenosis in the mid vessel. This was addressed with a 3.0 x 30 mm Cobra stent. Result was 0% residual stenosis. OVERALL IMPRESSION: Successful percutaneous transluminal angioplasty stent of the left circumflex going from 90% initial stenosis to 0% residual. TRANSINT:[id number] Voice Confirmation ID: [id number] DOCUMENT ID: [id number] JOHANNE STEWARD MD at 1838 CC: [id number] DICTATION DATE: 01/02/19 1258 [employer] UN[facility] OFFICER: 01/02/19 1313 [facility] CLI 01/02/19 [address] [place] [address]
== END 2019-01-02 16:55 | disposition home or self-care (01) ==
LOC: D.CATH 08:32
PROVIDERS: ATTEND Internal Medicine Interventional Cardiology
DX: I25.119 Atherosclerotic heart disease of native coronary artery with unspecified angina pectoris (principal); T82.855A Stenosis of coronary artery stent, initial encounter; Z01.812 Encounter for preprocedural laboratory examination

== ENCOUNTER 2019-07-07 22:34 | Inpatient (IN) | payer MEDICARE, BC ==
[~2019-07-07] VITALS: Ht 200.7 cm; Wt 93.7 kg
[2019-07-07 23:31] LABS: APPEARANCE CLEAR (CLEAR); BILIRUBIN NEGATIVE (NEGATIVE); COLOR YELLOW (YELLOW); GLUCOSE NEGATIVE (NEGATIVE); KETONE NEGATIVE (NEGATIVE); NITRITE NEGATIVE (NEGATIVE); PROTEIN 1+ mg/dL (NEGATIVE); UROBILINOGEN NORMAL (NORMAL)
[2019-07-07 23:32] LABS: BACTERIA FEW /hpf (NEGATIVE); EPITHELIAL CELLS 0-5 /hpf (0-5); RED CELLS - URINE 0-5 /hpf (0-5); WHITE CELLS - URINE 0-5 /hpf (NEGATIVE)
[2019-07-08 02:07] VITALS: BP 120/69; BMI 20.8
[2019-07-08 04:45] VITALS: BP 106/51
[2019-07-08 06:19] LABS: BASOPHILS 0.1 % (0-2); EOSINOPHILS 0.3 % (0-7); HEMATOCRIT 32.4 % (42.0-54.0); HEMOGLOBIN 10.4 g/dL (13.5-17.5); IMMATURE GRANULOCYTES 0.3 % (0-5); LYMPHOCYTES 8.1 % (15-50); MCH 28.6 pg (26.0-34.0); MCHC 32.1 g/dL (31.0-37.0); MEAN PLATELET VOLUME 9.4 fL (7.4-10.4); MONOCYTES 10.1 % (2-11); NEUTROPHILS 81.1 % (40-80); PLATELET COUNT 195 10x3/uL (130-400); RBC 3.64 10x6/uL (4.20-6.10); RDW 14.6 % (11.5-14.5); WBC 11.6 10x3/uL (4.8-10.8)
[2019-07-08 07:04] LABS: ALBUMIN 2.2 g/dL (3.4-5.0); ANION GAP 11.7 mmol/L (8-16); BILIRUBIN - TOTAL 0.48 mg/dL (0.2-1.3); CALCIUM 7.8 mg/dL (8.5-10.1); CARBON DIOXIDE 24.8 mmol/L (21.0-32.0); CREATININE - SERUM 1.7 mg/dL (0.6-1.3); POTASSIUM - SERUM 3.5 mmol/L (3.5-5.1)
[2019-07-08 07:42] LABS: MAGNESIUM - SERUM 1.8 mg/dL (1.8-2.4); PHOSPHOROUS 2.5 mg/dL (2.5-4.9)
[2019-07-08 07:50] LABS: APTT 45.5 SECONDS (22.8-39.4); INR 1.2 (0.85-1.17); PROTIME 15.1 SECONDS (11.6-15.0)
[2019-07-08 10:21] VITALS: BP 109/60
--- NOTE | 2019-07-08 11:47 | NUR ---
I have reviewed this patient and I concur with the Shift Assessment completed by the Licensed Practical Nurse today this shift.
[2019-07-08 12:55] VITALS: Ht 200.7 cm; Wt 93.7 kg
[2019-07-08 13:13] LABS: % SATURATION 7 % (15-55); IRON 15 ug/dl (35-150); TOTAL IRON BIND CAPACITY 194 ug/dl (260-445); UNSAT IRON BIND CAPACITY 179 ug/dl (150-375)
--- NOTE | 2019-07-08 14:19 | NUR ---
16 MACEDONIAN GAYTAN CTAHETER PLACED AND DID NOT MEET ANY RESISTANCE WHEN INSERTING. PT TOLERATED WELL.
[2019-07-08 14:52] VITALS: BP 117/71
[2019-07-08 18:22] VITALS: BP 135/84
--- NOTE | 2019-07-08 18:33 | NUR ---
SPOKE WITH SOFY BARRIOS PT'S . SHE STATES SHE JUST HAD SX SO SHE IS NOT ABLE TO BE WITH PT THIS HOSPITAL STAY. SHE STATES WHEN PT IS SICK HE HAS HALLUCINATIONS AND IS A HIGH FALL RISK AND IS AN ANESTHESIA RISK AND HE TAKES [address] RECOVER AND DR. STEWARD'S OFFICE KNOWS WHAT ANESTHESIA IT IS. SHE ALSO STATES SHE WANT A DOCTOR CALL HER TOMORROW. PASSED ALL THIS ON TO DENTAL COORDINATOR NURSE.
--- NOTE | 2019-07-08 18:56 | NUR ---
WENT INTO PT'S ROOM AND HE IS IN THE SHOWER WITH GAYTAN CATH AND IVF RUNNING. FLIGHT SERVICE SPECIALIST HELPED ME GET PT REDRESSED AND REORIENTED PT TO SITUTAION. PT STATES "I DIDNT EVEN THINK ABOUT NOT BEING ABLE TO NOT SHOWER WITH ALL THIS STUFF." BED ALARM TURNED ON.
--- NOTE | 2019-07-08 19:07 | NUR ---
EVENING ROUNDS COMPLETE, PT SITTING UP ON SIDE OF BED UNDRESSED. ASSISTED PT WITH DRESSING. PT IS NOT ORIENTATED TO SITUATION OR PLACE. REORIENTATED PT. BED ALARM ON. PT DENIES ANY PAIN OR NEEDS AT THIS TIME. CL IN REACH, BED IN LOWEST POSITIOIN.
[2019-07-08 23:46] VITALS: BP 141/63
[2019-07-09 00:18] VITALS: BP 134/54
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
[2019-07-09 05:49] LABS: BASOPHILS 0.2 % (0-2); EOSINOPHILS 1.8 % (0-7); HEMATOCRIT 28.9 % (42.0-54.0); HEMOGLOBIN 9.2 g/dL (13.5-17.5); IMMATURE GRANULOCYTES 0.2 % (0-5); LYMPHOCYTES 11.4 % (15-50); MCH 28.3 pg (26.0-34.0); MCHC 31.8 g/dL (31.0-37.0); MCV 88.9 fL (80.0-100.0); MEAN PLATELET VOLUME 8.8 fL (7.4-10.4); MONOCYTES 16.5 % (2-11); NEUTROPHILS 69.9 % (40-80); PLATELET COUNT 163 10x3/uL (130-400); RBC 3.25 10x6/uL (4.20-6.10); RDW 14.5 % (11.5-14.5)
[2019-07-09 06:06] LABS: ANION GAP 9.7 mmol/L (8-16); CALCIUM 7.2 mg/dL (8.5-10.1); CARBON DIOXIDE 24.5 mmol/L (21.0-32.0); CREATININE - SERUM 1.5 mg/dL (0.6-1.3); MAGNESIUM - SERUM 1.7 mg/dL (1.8-2.4); PHOSPHOROUS 2.4 mg/dL (2.5-4.9); POTASSIUM - SERUM 3.2 mmol/L (3.5-5.1)
[2019-07-09 06:42] LABS: WBC 5.5 10x3/uL (4.8-10.8)
--- NOTE | 2019-07-09 07:47 | NUR ---
PATIENT IS AWAKE AND TRYING TO LEAVE THE BED. ATTEMPTING TO TURN OFF THE BED ALARM. ASSISTED PATIENT BACK INTO BED WITH ASSISTANCE FROM A SHUTDOWN COORDINATOR AND ANOTEHR NURSE. PATIENT CURSED AT STAFF AND FLUNG COVERS OVER HEAD. BED IS IN LOW POSITION AND CALL LIGHT IS IN REACH. BED ALARM IS TURNED BACK ON
[2019-07-09 09:48] VITALS: BP 124/69
[2019-07-09 11:33] LABS: APPEARANCE CLEAR (CLEAR); BILIRUBIN NEGATIVE (NEGATIVE); COLOR YELLOW (YELLOW); GLUCOSE NEGATIVE (NEGATIVE); KETONE NEGATIVE (NEGATIVE); NITRITE NEGATIVE (NEGATIVE); PROTEIN TRACE mg/dL (NEGATIVE); SPECIFIC GRAVITY 1.025 (1.005-1.020); UROBILINOGEN NORMAL (NORMAL)
[2019-07-09 11:35] LABS: BACTERIA FEW /hpf (NEGATIVE); EPITHELIAL CELLS 0-5 /hpf (0-5)
[2019-07-09 11:36] LABS: MUCUS <1+ /lpf (NONE SEEN)
[2019-07-09 13:44] VITALS: BP 153/80
[2019-07-09 17:09] VITALS: BP 147/79
--- NOTE | 2019-07-09 19:17 | NUR ---
ALERT AND OX4 PT CALM AT THIS TIME DENIES NEEDS BUT WATER PROVIDED BED LOW AND LOCKED CALL LIGHT IS WITH PT LCTA IV INFUSING TO UPPER RT ARM PICC NOTED SL TO LEFT FA
[2019-07-09 20:00] VITALS: BP 164/80
--- NOTE | 2019-07-10 00:24 | NUR ---
PT HAS REMAINED CALM AND RESTFULL THIS SHIFT
[2019-07-10 04:00] VITALS: BP 144/68
--- NOTE | 2019-07-10 04:28 | NUR ---
I have reviewed this patient and I concur with the Shift Assessment completed by the Licensed Practical Nurse today this shift.
[2019-07-10 05:53] LABS: ANION GAP 11.4 mmol/L (8-16); CALCIUM 7.6 mg/dL (8.5-10.1); CARBON DIOXIDE 25.1 mmol/L (21.0-32.0); CREATININE - SERUM 1.3 mg/dL (0.6-1.3); MAGNESIUM - SERUM 1.8 mg/dL (1.8-2.4); PHOSPHOROUS 2.9 mg/dL (2.5-4.9); POTASSIUM - SERUM 3.5 mmol/L (3.5-5.1)
[2019-07-10 07:28] LABS: BASOPHILS 0.4 % (0-2); HEMATOCRIT 30.8 % (42.0-54.0); IMMATURE GRANULOCYTES 0.2 % (0-5); LYMPHOCYTES 19.1 % (15-50); MCH 28.5 pg (26.0-34.0); MCHC 32.5 g/dL (31.0-37.0); MCV 87.7 fL (80.0-100.0); MONOCYTES 15.4 % (2-11); NEUTROPHILS 61.9 % (40-80); RBC 3.51 10x6/uL (4.20-6.10); RDW 14.4 % (11.5-14.5); WBC 5.6 10x3/uL (4.8-10.8)
[2019-07-10 07:37] LABS: PLATELET COUNT 207 10x3/uL (130-400)
--- NOTE | 2019-07-10 07:52 | NUR ---
A/A/OX4. DENIES ANY PAIN OR DISCOMFORT AND NO REQUESTS VOICED. PT IS VERY CALM AND PLEASANT. RIGHT ARM PICC LINE INFUSING WELL WITHOUT REDNESS OR EDEMA AND LEFT FA SL PATENT. GAYTAN PATENT AND DRAINING CLEAR LIGHT YELLOW URINE. RESP EVEN AND UNLABORED ON ROOM AIR. BED IN LOW POSITION AND CALL LIGHT IN REACH. ASSESSMENT COMPLETED AND WILL CONTINUE POC.
[2019-07-10 09:46] VITALS: BP 116/69
[2019-07-10] MEDS ORDERED: OMNICEF300 MG PO (11:56)
[2019-07-10] MEDS ORDERED: FLOMAX0.4 MG PO (11:57)
--- NOTE | 2019-07-10 12:16 | MORECARE ---
CASE MANAGEMENT DISCHARGE SUMMARY PATIENT: MORGAN BARRIOS UNIT: [id number] ADM DATE: 07/08/19 AGE: 69 : 48 SEX: M ROOM/BED: D.2104 AUTHOR: SANDI GR PHYSICIAN: REFERRING PHYSICIAN: DHARA HARRISON MD DATE OF SERVICE: 07/10/19 Discharge Plan Patient Name: MORGAN BARRIOS [facility] [facility] 1950 Planned Disposition: Home Anticipated Discharge Date: Discharge Date: Expected LOS: Initial Reviewer: [email or web address] Initial Review Date: 07/10/2019 Generated: 07/10/19 1:15 pm DCPIA - Discharge Planning Initial Assessment Updated by [email or web address]: Samantha Jasso on 07/10/19 12:13 pm * Is the patient Alert and Oriented? Yes * PCP ANNIE * [facility] * Preadmission Environment Home with Family * ADLs Independent * Additional services required to return to the preadmission environment? No * Can the patient safely return to the preadmission environment? Yes * Has this patient been hospitalized within the prior 30 days at any hospital? No Coverage Notice Reviewer: [id number] - Samantha Jasso Notice Issued Date-Time: 07/10/2019 12:12 Notice Type: IM Discharge Notice Notice Delivered To: Patient Relationship to Patient: Chief Cloth Finishing Range Operator Name: Delivery Method: HAND - Hand Delivered Felicita Days: Prior Verbal Notification: Recipient Understood Notice: Yes Recipient Signature: Yes Med Rec Note Co-signed by Attending: Coverage Notice Comment: Patient Name: MORGAN BARRIOS Page [phone] at 1216 All edits/amendments must be made on the electronic document DICTATION DATE: 07/10/19 1215 LAUNDRY ATTENDANT: JOSE 07/10/19 1215 RPT#: [id number] DC DATE: STATUS: ADM IN [facility] [address] [place] [address] END OF REPORT
--- NOTE | 2019-07-10 12:24 | MORECARE ---
CASE MANAGEMENT DISCHARGE SUMMARY PATIENT: MORGAN BARRIOS UNIT: [id number] ADM DATE: 07/08/19 AGE: 69 : 48 SEX: M ROOM/BED: D.2104 AUTHOR: MAILEDOC PHYSICIAN: REFERRING PHYSICIAN: DHARA HARRISON MD DATE OF SERVICE: 07/10/19 Discharge Plan Patient Name: MORGAN BARRIOS Facility: [facility]:[place] : 1950 Planned Disposition: Home Anticipated Discharge Date: Discharge Date: Expected LOS: Initial Reviewer: [email or web address] Initial Review Date: 07/10/2019 Generated: 07/10/19 1:23 pm Comments DCP- Discharge Planning Updated by [email or web address]: Samantha Jasso on 07/10/19 11:[address] Patient Name: MORGAN BARRIOS Admission Status: ER Accout number: [id number] Admission Date: 07-08-2019 : 1950 Admission Diagnosis: Attending: DHARA HARRISON Current LOS: 2 Anticipated DC Date: Planned Disposition: Home Primary Insurance: MEDICARE A & B Discharge Planning Comments: CM MET WITH PATIENT AFTER OBTAINING VERBAL CONSENT. STATES PLANS TO DC TO HOME WITH FAMILY. PATIENT IS CALLING SOMEONE TO COME PICK HIM UP. DENIES NEEDS FOR HH, REHAB OR EQUIPMENT. IMM SIGNED. Direct Marketing Coordinator: Samantha Jasso DCPIA - Discharge Planning Initial Assessment Updated by [email or web address]: Samantha Jasso on 07/10/19 12:13 pm * Is the patient Alert and Oriented? Yes * PCP ANNIE * [facility] * Preadmission Environment Home with Family * ADLs Independent * Additional services required to return to the preadmission environment? No * Can the patient safely return to the preadmission environment? Yes * Has this patient been hospitalized within the prior 30 days at any hospital? No Coverage Notice Reviewer: [id number] - Samantha Jasso Notice Issued Date-Time: 07/10/2019 12:12 Notice Type: IM Discharge Notice Notice Delivered To: Patient Relationship to Patient: Hot Room Attendant Name: Delivery Method: HAND - Hand Delivered Felicita Days: Prior Verbal Notification: Recipient Understood Notice: Yes Recipient Signature: Yes Med Rec Note Co-signed by Attending: Coverage Notice Comment: Last DP export: 1/17/20 11:16 a Patient Name: MORGAN BARRIOS Page [phone] at 1224 All edits/amendments must be made on the electronic document DICTATION DATE: 07/10/191222 CARPET OR RUG LAYER HELPER: JOSE 07/10/191222 RPT#: [id number] DC DATE: STATUS: ADM IN [facility] [address] [place] [address] END OF REPORT
--- NOTE | 2019-07-10 13:03 | NUR ---
PATIENT REPORTS THAT HE GOT A FLU SHOT AT DR VALENCIA OFFICE IN MAY 2019.
--- NOTE | 2019-07-10 13:30 | NUR ---
MIDLINE IV AND LEFT FOREARM IV DC'D WITH CATH TIP INTACT AND TOLERATED WELL. GAYTAN IS NOT TO BE DC'D PRIOR TO DISCHARGE. LEFT FLOOR VIA W/C WITH ALL PERSONAL BELONGINGS AND LEFT FACILITY VIA PRIVATE VEHICLE WITH HIS SON.
--- NOTE | 2019-07-10 14:20 | CN ---
PATIENT NAME:MORGAN BARRIOS MEDICAL RECORD: [id number] : 46 LOCATION:[facility].2104 ADMIT DATE: 07/08/19 ACCOUNT: [id number] CONSULTING PHYSICIAN: ARCELIA TURNER MD REFERRING PHYSICIAN: DHARA HARRISON MD DATE OF CONSULTATION: 07/09/2019 IDENTIFYING DATA: The patient is 69 years old and he is admitted to the hospital secondary to urinary tract infection. CHIEF COMPLAINT: Aggression. 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 He has history of hypertension, coronary artery disease, and a cardiac arrhythmia. He also has a history of kidney stones. There are reports of him being combative, but he does not know what I am talking about and there is not anything specifically written in the medical record that I can find. He does admit that he has been irritable, frustrated, and angry at times, but he relates that to being ill and also says that he is having difficulty adjusting to not having as much to do as he previously did. Sounds very reasonable to me. He is appropriate with the euthymic mood, no psychotic symptoms. No thoughts of harming himself. No thoughts of harming others and he is only moderately impaired cognitively. He was oriented, although it did take a protracted amount of time for him to answer the questions and he clearly has some short-term memory loss and unfortunately, I am going to suspect that if he has not been diagnosed with dementia, he probably has it, but I would prefer that his primary care physician discussed that with him. From the standpoint of aggression and dangerousness, I see nothing ASSESSMENT: 1. Adjustment disorder with mixed emotional features. 2. Rule out dementia. PLAN: No psychiatric medications or treatment are indicated based on the information I have in the evaluation I have done at this point. If the circumstances change and/or new information or information that I do not have becomes available, I would be willing to see him and reevaluate. TRANSINT:[id number] Voice Confirmation ID: [id number] DOCUMENT ID: [id number] ARCELIA TURNER MD at 1420 CC: [id number] DICTATION DATE: 07/09/19 1728 SHREDDED FILLER HOPPER FEEDER: 07/09/19 2100 ADM IN [facility] [address] [place] [address]
[2019-07-10 14:56] VITALS: BP 129/72
--- NOTE | 2019-07-10 17:07 | MORECARE ---
CASE MANAGEMENT DISCHARGE SUMMARY PATIENT: MORGAN BARRIOS UNIT: [id number] ADM DATE: 07/08/19 AGE: 69 : 48 SEX: M ROOM/BED: D.2104 AUTHOR: MAILE,DOC PHYSICIAN: REFERRING PHYSICIAN: DHARA HARRISON MD DATE OF SERVICE: 07/10/19 Discharge Plan Patient Name: MORGAN BARRIOS Facility: [facility]:[place] : 1950 Planned Disposition: Home Anticipated Discharge Date: Discharge Date: 07/10/2019 Expected LOS: Initial Reviewer: [id number] Initial Review Date: 07/10/2019 Generated: 07/10/19 6:07 pm Comments DCP- Discharge Planning Updated by [email or web address]: Samantha Jasso on 07/10/19 11:[address] Patient Name: MORGAN BARRIOS Admission Status: ER Accout number: [id number] Admission Date: 07-08-2019 : 1950 Admission Diagnosis: Attending: DHARA HARRISON Current LOS: 2 Anticipated DC Date: Planned Disposition: Home Primary Insurance: MEDICARE A & B Discharge Planning Comments: CM MET WITH PATIENT AFTER OBTAINING VERBAL CONSENT. STATES PLANS TO DC TO HOME WITH FAMILY. PATIENT IS CALLING SOMEONE TO COME PICK HIM UP. DENIES NEEDS FOR HH, REHAB OR EQUIPMENT. IMM SIGNED. Flat Locker: Samantha Jasso DCPIA - Discharge Planning Initial Assessment Updated by [email or web address]: Samantha Jasso on 07/10/19 12:13 pm * Is the patient Alert and Oriented? Yes * PCP ANNIE * [facility] * Preadmission Environment Home with Family * ADLs Independent * Additional services required to return to the preadmission environment? No * Can the patient safely return to the preadmission environment? Yes * Has this patient been hospitalized within the prior 30 days at any hospital? No Coverage Notice Reviewer: [id number] - Samantha Jasso Notice Issued Date-Time: 07/10/2019 12:12 Notice Type: IM Discharge Notice Notice Delivered To: Patient Relationship to Patient: [employer] Director Name: Delivery Method: HAND - Hand Delivered Felicita Days: Prior Verbal Notification: Recipient Understood Notice: Yes Recipient Signature: Yes Med Rec Note Co-signed by Attending: Coverage Notice Comment: Last DP export: 07/10/19 11:24 a Patient Name: MORGAN BARRIOS Page [phone] at 1707 All edits/amendments must be made on the electronic document DICTATION DATE: 07/10/191706 CONFIGURATION MANAGEMENT SPECIALIST: JOSE 07/10/191706 RPT#: [id number] DC DATE:07/10/19 STATUS: DIS IN [facility] [address] [place] [address] END OF REPORT
--- NOTE | 2019-07-11 10:30 | PN ---
PATIENT:MORGAN BARRIOS MEDICAL RECORD: [id number] LOCATION:[address] ADMISSION DATE: 07/08/19 PROGRESS NOTE DATE OF SERVICE: 07/10/2019 SUBJECTIVE: The patient's case was discussed with staff. He has no new complaint. OBJECTIVE: The patient is quite confused and equally quite pleasant. He is interactive, jokes and kids with me and as though we have known each other all of our lives, although I do not think he really has much of a recollection of meeting me before. He admits that he has some memory impairment, but I do not think his appreciation for the situation is significant. He has not been combative or aggressive. ASSESSMENT: Dementia. PLAN: I have reviewed current medicines and will maintain them. This patient is in need of significant supervision. I am presuming that his family is providing that and is able to provide that at home. TRANSINT:[id number] Voice Confirmation ID: [id number] DOCUMENT ID: [id number] ARCELIA TURNER MD at 1030 CC: [id number] DICTATION DATE: 07/10/19 1623 CIGAR BRANDER: 07/11/19 0535 DIS IN 07/10/19 [facility] [address] [place] [address]
== END 2019-07-10 14:00 | disposition home or self-care (01) | DRG 871 ==
LOC: D.ER 22:34 → D.M2 07-08 00:13
PROVIDERS: Family Medicine; ADMIT Internal Medicine Nephrology; ATTEND Internal Medicine Nephrology
PROC: 05HB33Z Insertion of Infusion Device into Right Basilic Vein, Percutaneous Approach (ICD-10-PCS; principal; 2019-07-09)
PROC: B54MZZA Ultrasonography of Right Upper Extremity Veins, Guidance (ICD-10-PCS; 2019-07-09)
DX: A41.9 Sepsis, unspecified organism (principal); G92 Toxic encephalopathy; N13.30 Unspecified hydronephrosis; N17.9 Acute kidney failure, unspecified; F17.213 Nicotine dependence, cigarettes, with withdrawal; E03.9 Hypothyroidism, unspecified; D64.9 Anemia, unspecified; I10 Essential (primary) hypertension; E78.5 Hyperlipidemia, unspecified; I48.0 Paroxysmal atrial fibrillation; N40.0 Benign prostatic hyperplasia without lower urinary tract symptoms; N30.90 Cystitis, unspecified without hematuria; I25.10 Atherosclerotic heart disease of native coronary artery without angina pectoris

== ENCOUNTER → 2019-07-20 18:14 | Outpatient (CLI) | payer MEDICARE, BC ==
[2019-07-08 12:55] VITALS: BMI 20.8
[~2019-07-20 18:14] MED LIST changes: +FLOMAX0.4 MG PO; +OMNICEF300 MG PO
== END | disposition home or self-care (01) ==
LOC: D.LABREF 18:14
PROVIDERS: ATTEND Urology
DX: R82.90 Unspecified abnormal findings in urine (principal); R31.9 Hematuria, unspecified

== ENCOUNTER 2019-08-11 23:57 | Inpatient (IN) | payer MEDICARE, BC ==
[~2019-08-11] VITALS: Ht 200.7 cm; Wt 94.8 kg
[~2019-08-11 23:57] MED LIST changes: +AMOXICILLIN500 M1 PO; +CIPRO500 MG; +CIPRO500 MG PO
[2019-08-12] VITALS (24 sets, daily range): BP systolic 99–130; BP diastolic 37–66; Ht 200.7 cm; Wt 94.8 kg
[2019-08-12 01:14] LABS: BASOPHILS 0.1 % (0-2); EOSINOPHILS 0.1 % (0-7); HEMATOCRIT 26.8 % (42.0-54.0); HEMOGLOBIN 8.5 g/dL (13.5-17.5); IMMATURE GRANULOCYTES 0.5 % (0-5); LYMPHOCYTES 8.1 % (15-50); MCH 28.8 pg (26.0-34.0); MCHC 31.7 g/dL (31.0-37.0); MCV 90.8 fL (80.0-100.0); MEAN PLATELET VOLUME 8.8 fL (7.4-10.4); MONOCYTES 9.3 % (2-11); NEUTROPHILS 81.9 % (40-80); PLATELET COUNT 223 10x3/uL (130-400); RBC 2.95 10x6/uL (4.20-6.10); RDW 15.6 % (11.5-14.5); WBC 14.8 10x3/uL (4.8-10.8)
[2019-08-12 01:18] LABS: CALCIUM 8.1 mg/dL (8.5-10.1); CARBON DIOXIDE 26.2 mmol/L (21.0-32.0); CHLORIDE - SERUM 102 mmol/L (98-107); GLUCOSE 128 mg/dL (74-106); POTASSIUM - SERUM 4.8 mmol/L (3.5-5.1); SODIUM 136 mmol/L (136-145); eGFR NON AFRICAN AMERICAN 27 mL/min (90-120)
[2019-08-12 01:19] LABS: APTT 29.6 SECONDS (22.8-39.4); CALC OSMOLALITY 281 mosm/kg (275-300); CREATININE - SERUM 2.5 mg/dL (0.6-1.3); INR 1.11 (0.85-1.17); PROTIME 14.3 SECONDS (11.6-15.0); UREA NITROGEN 34 mg/dL (7-18)
--- NOTE | 2019-08-12 01:20 | NUR ---
ATTEMPTED TO COLLECT URINE SAMPLE AT THIS TIME. PT HAS 16F GAYTAN WITH LEG BAG APPLIED TO LEFT LEG. UNABLE TO OBTAIN URINE AT THIS TIME. EDP NOTIFIED. LEG BAG REPLACED.
[2019-08-12 01:35] LABS: ALBUMIN 2.7 g/dL (3.4-5.0); ALKALINE PHOSPHATASE 78 U/L (30-120); ALT (SGPT) 13 U/L (10-68); BILIRUBIN - TOTAL 0.42 mg/dL (0.2-1.3); CKMB 0.8 U/L (0.0-3.6); CREATINE KINASE 68 UL (21-232); PROTEIN - SERUM 5.7 g/dL (6.4-8.2); THYROID STIMULATING HORMONE 3.37 uIU/mL (0.36-3.74); TROPONIN-I < 0.017 ng/mL (0.000-0.060)
--- NOTE | 2019-08-12 02:45 | NUR ---
C-COLLAR REMOVED AT THIS TIME PER EDP DOWNEN.
--- NOTE | 2019-08-12 03:53 | NUR ---
URINE SENT TO LAB AT THIS TIME.
[2019-08-12 04:45] LABS: UDS - AMPHET NEGATIVE QUAL (NEGATIVE); UDS - BARB NEGATIVE QUAL (NEGATIVE); UDS - BENZO NEGATIVE QUAL (NEGATIVE); UDS - COCAINE NEGATIVE QUAL (NEGATIVE); UDS - OPIATE POSITIVE QUAL (NEGATIVE); UDS - PCP NEGATIVE QUAL (NEGATIVE); UDS - THC NEGATIVE QUAL (NEGATIVE)
[2019-08-12 05:21] LABS: BILIRUBIN NEGATIVE (NEGATIVE); GLUCOSE NEGATIVE (NEGATIVE); KETONE NEGATIVE (NEGATIVE); NITRITE NEGATIVE (NEGATIVE); UROBILINOGEN NORMAL (NORMAL)
[2019-08-12 05:22] LABS: BACTERIA MODERATE /hpf (NEGATIVE); EPITHELIAL CELLS 0-5 /hpf (0-5); HYALINE CAST 0-5 /lpf (NONE SEEN); WHITE CELLS - URINE 0-5 /hpf (NEGATIVE)
--- NOTE | 2019-08-12 07:30 | NUR ---
PATIENT IN BED. AWAKE ASKING WHY HE IS HERE, HE DOES NOT UNDERSTAND. EXPLANATION PROVIDED. 2 ND UNIT OF BLOOD INFUSING LEFT FOREARM. NO SWELLING OR REDNESS NOTED. NS AT 125 ML HOUR INFUSING IN RIGHT HAND. NO REDNESS OR SWELLING. GAYTAN CATH PATENT DRAINING CLEAR KESHAWN URINE. MONITOR SR. COOPERATIVE AND FRIENDLY.
--- NOTE | 2019-08-12 07:32 | NUR ---
IV INFILTRATED IN L AC, IV DC'D. RESTARTED WITH 20G CATH IN L FA X 1 STICK SECURED WITH TAPE AND OPSITE. GOOD BLOOD RETURN NOTED AND FLUSHED EASILY.
--- NOTE | 2019-08-12 08:30 | NUR ---
HERE UPDATE GIVEN. REVIEWED PATIENT HOME MEDS WITH . STATES PATIENT CAN GET VIOLENT QUICKLY.
--- NOTE | 2019-08-12 09:59 | NUR ---
DR. GÓMEZ CALLED NOTIFIED OF CONSULT. WILL SEE PATIENT THIS AFTERNOON
--- NOTE | 2019-08-12 10:30 | NUR ---
RESTING IN BED COMFORTABLY. NO DISTRESS. DENIES PAIN. FRIENDLY AND COOPERATIVE. ASK AGAIN WHY HE WAS HERE AND IF CAN GO HOME. EXPLAINED THAT HE HAD 3 SYNCOPAL SPELLS IN ONE DAY AND HE NEEDS TO WAIT ON DR. GÓMEZ TO SEE HIM.
[2019-08-12 10:32] LABS: CKMB 1.3 U/L (0.0-3.6); CREATINE KINASE 105 UL (21-232); TROPONIN-I < 0.017 ng/mL (0.000-0.060)
--- NOTE | 2019-08-12 11:30 | NUR ---
LUNCH TRAY SERVED AND SET UP FOR PATIENT
--- NOTE | 2019-08-12 13:00 | NUR ---
ATE 100% OF LUNCH TRAY NO DISTRESS NO COMPLIANTS VOICED
--- NOTE | 2019-08-12 15:34 | NUR ---
DR. Bolivar HERE TALKED WITH FAMILY AND PATIENT
[2019-08-12 15:46] LABS: CKMB 1.1 U/L (0.0-3.6); CREATINE KINASE 113 UL (21-232)
[2019-08-12 15:47] LABS: TROPONIN-I < 0.017 ng/mL (0.000-0.060)
--- NOTE | 2019-08-12 16:30 | NUR ---
dinner tray served. in good humor. cooperative. iv patent left forearm infusing with ns at 125 ml hour. davis cath with babar clear urine. no distress. denies pain
--- NOTE | 2019-08-12 17:00 | NUR ---
dr. cote here talked with patient. to have davis dre dc'd in am. good appetite ate 100% of dinner tray
--- NOTE | 2019-08-12 17:51 | NUR ---
dr. marsh notified of consult.
--- NOTE | 2019-08-12 18:37 | NUR ---
WATCHING TV. HAVING THE SAME CONVERSATION AND REORIENTATION WHAT DR. GÓMEZ SAID. PATIENT KNOWS WHERE HE IS, WHO HE IS.
--- NOTE | 2019-08-12 19:58 | NUR ---
PT RECEIVED WITH EYES OPEN WATCHING TV. ALERT AND ORIENTED AT THIS TIME. NO S/S OF DISTRESS. NO COMPLAINTS OF PAIN. CALL LIGHT IN REACH. WILL CONTINUE TO OBSERVE.
--- NOTE | 2019-08-12 20:55 | NUR ---
PT WATCHING TV, NO NEEDS OR BEHAVIORS NOTED. CALL LIGHT IN REACH. WILL CONTINUE TO OBSERVE.
--- NOTE | 2019-08-12 22:05 | NUR ---
PT PULLED OF MONITOR LEADS, SPO2 SENSOR, AND IV'S. PLACE BACK ON MONITOR AND IV TO RIGHT FOREARM 20GA. PT STATES HE THOUGHT THAT HE DIDN'T NEED THEM. REMINDED WHERE HE WAS, AND THAT WE WOULD COME AND REMOVE THEM WHEN NEEDED. PT APOLOGETIC. WILL CONTINUE TO OBSERVE.
[2019-08-13] VITALS (19 sets, daily range): BP systolic 100–147; BP diastolic 43–77
--- NOTE | 2019-08-13 01:26 | NUR ---
PT RESTING WITH EYES CLOSED AND CHEST RISING. NO S/S OF DISTRESS NOTED. WILL CONTINUE TO OBSERVE.
--- NOTE | 2019-08-13 03:08 | NUR ---
PT UP TO BATHROOM WITH STANDBY ASSIST. GAIT STEADY. ASSIST WITH IV AND GAYTAN. NO BM NOTED. BATH GIVEN WITH COMPLETE LINEN CHANGE. PT IN BED. PT ORIENTED, BUT FORGETFUL AT THIS TIME. CALL LIGHT IN REACH. WILL CONTNIUE TO OBSERVE.
--- NOTE | 2019-08-13 06:31 | NUR ---
LUKAS CATH D/C'D PER ORDER. A LONG THREAD CAME OUT WITH LUKAS BUT STILL ATTACHED INTERNALLY. WILL REPORT TO ONCOMING STAFF. PT TOLERATED WELL
[2019-08-13 07:09] LABS: BASOPHILS 0.2 % (0-2); EOSINOPHILS 1.3 % (0-7); HEMATOCRIT 28.2 % (42.0-54.0); HEMOGLOBIN 9.2 g/dL (13.5-17.5); IMMATURE GRANULOCYTES 0.4 % (0-5); LYMPHOCYTES 14.5 % (15-50); MCHC 32.6 g/dL (31.0-37.0); MEAN PLATELET VOLUME 8.8 fL (7.4-10.4); NEUTROPHILS 71.6 % (40-80); RBC 3.17 10x6/uL (4.20-6.10); RDW 15.3 % (11.5-14.5)
--- NOTE | 2019-08-13 07:10 | NUR ---
UPON INITIAL ASSESSMENT PATIENT A&O X4. SITTING UP IN BED WATCHNIG TV. NO OBVIOUS S/S OF DISTRESS NOTED. ON ROOM AIR. PACED RHYTHM NOTED ON EQUIPMENT PLANNER. ABRASIONS TO LT FOREHEAD. PIV IN RT ARM INFUSING NS @ 125 ML/H. BED IS IN LOW POSITION AND CALL LIGHT AND PERSONAL ITEMS ARE WITHIN REACH.
[2019-08-13 07:12] LABS: PLATELET COUNT 161 10x3/uL (130-400); WBC 8.6 10x3/uL (4.8-10.8)
[2019-08-13 07:39] LABS: ALBUMIN 2.3 g/dL (3.4-5.0); ANION GAP 14.1 mmol/L (8-16); BILIRUBIN - TOTAL 0.48 mg/dL (0.2-1.3); CALCIUM 7.9 mg/dL (8.5-10.1); POTASSIUM - SERUM 4.1 mmol/L (3.5-5.1); PROTEIN - SERUM 5.4 g/dL (6.4-8.2)
[2019-08-13 07:40] LABS: CREATININE - SERUM 1.8 mg/dL (0.6-1.3)
--- NOTE | 2019-08-13 07:55 | NUR ---
PATIENT SITTING UP IN BED EATING BREAKFAST INDEPENDENTLY.
--- NOTE | 2019-08-13 10:05 | NUR ---
FOUND PATIENT UP OUT OF BED CONFUSED; WALKING AROUND SIDE OF BED STATING "I'M LOOKING FOR MY HUNTING PANTS, I HAD THEM YESTERDAY WHEN I WAS DOWN IN ROOM 106 AND I WAS JUST NEEDING TO FIND THEM". PATIENT WAS ABLE TO STATE CORRECTLY HIS LOCATION AND WHAT YEAR IT IS. GOT PATIENT BACK TO BED. ALL MONITORING EQUIPMENT ON AND FUCTIONING PROPERLY. BED IN LOW POISTION, BED ALARM ON, AND ALL PERSONAL ITEMS AND CALL LIGHT WITHIN REACH.
--- NOTE | 2019-08-13 11:27 | NUR ---
RECEIVED BEDSIDE REPORT FROM ISAIAH GUPTA AND ASSUMED CARE OF PATIENT. PATIENT ALERT AND ORIENTED X 4, VSS. HEAD TO TO ASSESSMENT COMPLETED. IV 20 GA TO RIGHT FA INSFUSING NS AT 125 ML/HR, WITH NO S/S OF INFILTRATION.
--- NOTE | 2019-08-13 15:10 | NUR ---
REASSESSMENT COMPLETED. VSS. NO NEEDS AT THIS TIME.
--- NOTE | 2019-08-13 17:16 | NUR ---
SPOKE TO DR. GÓMEZ TO DISCHARGE PATIENT TO HOME. WANTS TO FOLLOW UP WITH PATIENT IN HIS OFFICE IN 1 - 2 WEEKS.
--- NOTE | 2019-08-13 19:32 | MORECARE ---
CASE MANAGEMENT DISCHARGE SUMMARY PATIENT: MORGAN BARRIOS UNIT: [id number] ADM DATE: 08/12/19 AGE: 69 : 48 SEX: M ROOM/BED: D[facility] AUTHOR: MAILEDOC PHYSICIAN: REFERRING PHYSICIAN: LENNIE SALCEDO MD DATE OF SERVICE: 08/13/19 Discharge Plan Patient Name: MORGAN BARRIOS Facility: [facility]:[place] : 1950 Planned Disposition: Home Anticipated Discharge Date: Discharge Date: 08/13/2019 Expected LOS: Initial Reviewer: [email or web address] Initial Review Date: 08/13/2019 Generated: 08/13/19 8:32 pm Comments DCP- Discharge Planning Updated by [id number]: Priyanka Fulton on 08/13/19 6:[address] Patient Name: MORGAN BARRIOS Admission Status: ER Accout number: [id number] Admission Date: 08-12-2019 : 1950 Admission Diagnosis: Attending: LENNIE SALCEDO Current LOS: 1 Anticipated DC Date: Planned Disposition: Home Primary Insurance: MEDICARE A & B Discharge Planning Comments: CM met with patient at bedside after explaining CM role and obtaining verbal consent. Patient lives at home with his where he is independent with his care and plans to return there upon discharge. Patient feels this would be a safe discharge. CM discussed availability / needs of home health and medical equipment. Patient denies any discharge needs at this time. Patient states he will have his family drive him home upon discharge. CM will continue to follow and assist as needed with discharge planning / needs. Electric Organ Assembler And Checker: Priyanka Fulton DCPIA - Discharge Planning Initial Assessment Updated by [email or web address]: Priyanka Fulton on 08/13/19 7:30 pm * Is the patient Alert and Oriented? Yes * How many steps to enter\exit or inside your home? * PCP ANNIE * [facility] * Preadmission Environment Home with Family * ADLs Independent * Equipment None * List name and contact numbers for known caregivers / representatives who currently or will assist patient after discharge: SOFY BARRIOS - - [phone] * Verbal permission to speak to the caregivers and representatives has been obtained from the patient. Yes * Community resources currently utilized None * Additional services required to return to the preadmission environment? No * Can the patient safely return to the preadmission environment? Yes * Has this patient been hospitalized within the prior 30 days at any hospital? No Patient Name: MORGAN BARRIOS Page [phone] at 1932 All edits/amendments must be made on the electronic document DICTATION DATE: 08/13/191931 WEB ENGINEER: JOSE 08/13/191931 RPT#: [id number] DC DATE:08/13/19 STATUS: DIS IN [facility] [address] [place] [address] END OF REPORT
== END 2019-08-13 18:57 | disposition home or self-care (01) | DRG 920 ==
LOC: D.ER 23:57 → D.CVICU 08-12 02:51
PROVIDERS: Family Medicine; ADMIT Legal Medicine; ATTEND Legal Medicine
DX: N99.840 Postprocedural hematoma of a genitourinary system organ or structure following a genitourinary system procedure (principal); N39.0 Urinary tract infection, site not specified; Y84.9 Medical procedure, unspecified as the cause of abnormal reaction of the patient, or of later complication, without mention of misadventure at the time of the procedure; R55 Syncope and collapse; D64.9 Anemia, unspecified; I95.9 Hypotension, unspecified; I48.91 Unspecified atrial fibrillation; F03.90 Unspecified dementia, unspecified severity, without behavioral disturbance, psychotic disturbance, mood disturbance, and anxiety; E53.8 Deficiency of other specified B group vitamins; I10 Essential (primary) hypertension; I25.10 Atherosclerotic heart disease of native coronary artery without angina pectoris; Z95.0 Presence of cardiac pacemaker; Z72.0 Tobacco use

== ENCOUNTER → 2019-12-10 07:51 | Outpatient (CLI) | payer MEDICARE, BC ==
[2019-08-12 15:50] VITALS: BMI 23.5
== END | disposition home or self-care (01) ==
LOC: D.HCCARDIO 12-09 08:30
PROVIDERS: ATTEND Internal Medicine Cardiovascular Disease
DX: I25.10 Atherosclerotic heart disease of native coronary artery without angina pectoris (principal)